=== PATIENT | male | born 1975 | race Caucasian/White ===

== ENCOUNTER → 2017-07-23 06:06 | Outpatient (CLI) | payer MEDICARE, SELFPAY ==
[2017-07-23 08:00] LABS: Hematocrit 50.4 % (40-54); Hemoglobin 18.7 g/dl (13.0-16.5)
[2017-07-23 08:22] LABS: ALB/GLOB Ratio 1.1 RATIO (0.9-2.4); AST(SGOT) 20 U/L (15-37); Alanine Aminotransfer ALT/SGPT 53 U/L (16-61); Albumin, Serum 3.9 g/dL (3.2-5.0); Alkaline Phosphatase 52 U/L (45-117); Anion Gap 8 (5-15); BUN 14 mg/dL (7-18); BUN/Creat Ratio 13.5 RATIO (10-20); Calcium,Total 8.8 mg/dL (8.5-10.1); Chloride 104 mmol/L (98-107); Creatinine, Serum 1.04 mg/dL (0.70-1.30); EST Glomerular Filtration Rate 84 mL/min (>60); Est Glom Filt Rate - Afr Amer 101 mL/min (>60); Free T3 2.5 pg/mL (2.18-3.98); Globulin 3.7 g/dL (2.2-4.2); Glucose 93 mg/dL (74-106); Protein, Total 7.6 g/dL (6.4-8.2); Sodium Level 141 mmol/L (136-145); Thyroid Stim Hormone (TSH) 4.02 uIU/mL (0.358-3.74)
[2017-07-31 11:05] LABS: DHEA Sulfate 677.7 ug/dL (102.6-416.3); Testosterone, % Free 5.13 % (1.50-4.20); Testosterone, Total 772 ng/dL (264-916)
== END ==
PROVIDERS: Visit Provider Internal Medicine Endocrinology, Diabetes & Metabolism
DX: E29.1 Testicular hypofunction (principal); E89.0 Postprocedural hypothyroidism
CPT/HCPCS: 36415; 80053; 82627; 84402; 84403; 84436; 84443; 84481; 85014; 85018; 82626

== ENCOUNTER 2017-09-24 14:44 | Emergency (ER) | payer MEDICARE, SELFPAY ==
[2017-09-24 14:46] VITALS: BP 148/76; PULSE 86; RESP 16; TEMP 36.7; O2SAT 97; BMI 29.5
[2017-09-24 16:45] VITALS: BP 137/85; PULSE 79; RESP 17; O2SAT 96
[2017-09-24 17:39] LABS: Absolute Lymphocyte Count 2.36 X10^3/ul (0.83-4.51); Absolute Neutrophil Count 2.4 X10^3/uL (2.0-7.7); Basophil# 0.01 X10^3/uL; Basophil% 0.2 % (0-1); Eosinophil# 0.05 X10^3/uL; Eosinophils% 0.9 % (0-5); Hematocrit 46.9 % (40-54); Hemoglobin 16.9 g/dl (13.0-16.5); Lymphocyte # 2.36 X10^3/ul (4.0); Lymphocyte % 44.1 % (19-41); Mean Corpuscular Hgb 33.6 pg (27.0-32.0); Mean Corpuscular Volume 93.2 fL (80-94); Mean Platelet Vol. 9.7 fl (6.2-12.0); Monocyte# 0.51 X10^3/uL; Monocyte% 9.5 % (0-10); Neutrophil # 2.41 X10^3/uL (2.7-7.7); Neutrophil % 45.1 % (47-70); Platelet Count 172 K/mm3 (150-450); RBC Distribution Width CV 12.2 % (11.6-14.6); RBC Distribution Width SD 41.1 fl (35.1-43.9); Red Blood Count 5.03 M/mm3 (4.6-6.2); White Blood Count 5.4 K/mm3 (4.4-11.0)
[2017-09-24 17:40] LABS: POSITIVE COUNT NO; POSITIVE DIFFERENTIAL NO; POSITIVE MORPHOLOGY NO
[2017-09-24 18:00] LABS: Anion Gap 7 (5-15); BUN 20 mg/dL (7-18); BUN/Creat Ratio 18.2 RATIO (10-20); Calcium,Total 8.7 mg/dL (8.5-10.1); Chloride 105 mmol/L (98-107); EST Glomerular Filtration Rate 78 mL/min (>60); Est Glom Filt Rate - Afr Amer 95 mL/min (>60); Glucose 127 mg/dL (74-106); Potassium 3.7 mmol/L (3.5-5.1); Sodium Level 140 mmol/L (136-145); Thyroid Stim Hormone (TSH) 9.43 uIU/mL (0.358-3.74)
[2017-09-24 18:28] VITALS: BP 137/70; PULSE 73; RESP 20; O2SAT 95
--- NOTE | 2017-09-24 18:50 | ED.VISSUMM ---
- ER Visit Summary Date of Service: 09/24/17 Chief Complaint: Anxiety History of Present Illness: The patient is a 42 M with a history of anxiety, depression, and hypothyroidism. Patient states that he had thyroid surgery last year. Since that time he has had anxiety and panic attacks. Patient reports he has chronically elevated hemoglobin levels and is requesting regular phlebotomy to correct this. Patient states he has reactions and sensitivities to many medications including his thyroid medications. His TSH has been elevated significant lately, up to 20, but his thyroid meds have to be slowly titrated back up because of his sensitivity to them. Patient is also complaining of insomnia but states he has had reactions to any medications to treat this as well. He does see a psychologist for his anxiety at the counseling center. Patient states that she wants to put him on anxiety medication but he feels that he has reactions to these medications and is afraid to trial others that he has not yet tried. Patient states he is interested in going to [facility] for treatment of his anxiety but he wants to drive there voluntarily. Patient states he has been in contact with them through their website. He does not wish to be sent from here as a transfer. He denies suicidal thoughts at this time. Physical Examination: Vital signs are unremarkable. Patient sitting upright in bed. He is anxious and intermittently tearful. Head neck examination is unremarkable. Heart is regular rate and rhythm. Lung sounds are clear. Abdomen is soft nontender. Skin examination reveals normal color throughout. No rashes are appreciated. Neuro exam reveals no focal deficits. Test Results: Patient did agree to allow me to recheck his hemoglobin and his TSH. His CBC returned with a hemoglobin of 16.9 which is actually improved when compared to his previous values. Chemistry studies are gross unremarkable. TSH is 9.43, which patient states again is improving. Emergency Department Course and Treatment: She declined to try anything here for pain. He does not want to be on benzos. He reported he has been on Vistaril in the past and had a bad reaction to that. I did discuss the patient with intake at [facility]. They do have beds available. They said the patient was more than welcome to drive there to be evaluated and treated. On repeat evaluation patient is requesting referral to a student career development specialist as well as a bridge repairer. He is given phone numbers for both Dr. Plummer as well as Dr. Lopez along with Dr. Albert for hematology. Treatment Plan: [] Disposition: Discharge Impression: Anxiety This note was generated with Swogo dictation software. It may contain incorrect words, spelling, and punctuation that were not noted in review of the chart prior to signing ED Disposition - Plan for ED Patient: Disposition: Home or Assisted Living Chief Complaint: General Illness Instructions: ED Panic Attack Referrals: Bartolo Lopez DO [STAFF PHYSICIAN] - Johnathon Albert MD [NON-STAFF] - Ion Plummer MD [STAFF PHYSICIAN] -
--- NOTE | 2017-09-24 18:50 | ED.DEP ---
ED Disposition - Plan for ED Patient: Disposition: Home or Assisted Living Chief Complaint: General Illness Instructions: ED Panic Attack Referrals: Ion Plummer MD [STAFF PHYSICIAN] - Bartolo Lopez DO [STAFF PHYSICIAN] - Johnathon Albert MD [NON-STAFF] -
[2017-09-24 19:12] VITALS: BP 131/74; PULSE 59; RESP 16; O2SAT 97
== END 2017-09-24 19:13 | disposition home or self-care (01) ==
PROVIDERS: Emergency Provider Emergency Medicine
DX: F41.9 Anxiety disorder, unspecified (principal); F32.9 Major depressive disorder, single episode, unspecified; E03.9 Hypothyroidism, unspecified; Z79.899 Other long term (current) drug therapy
CPT/HCPCS: 80048; 84443; 85025; 99283; A4216

== ENCOUNTER → 2017-10-15 20:00 | Outpatient (CLI) | payer MEDICARE, SELFPAY ==
[2017-10-15] MEDS: Zolpidem Tartrate 5 MG Tablet PO (21:45)
== END ==
PROVIDERS: Visit Provider Internal Medicine Critical Care Medicine
DX: G47.33 Obstructive sleep apnea (adult) (pediatric) (principal)
CPT/HCPCS: 95811

== ENCOUNTER 2018-02-03 09:00 | Outpatient (RCR) | payer MEDICARE, SELFPAY ==
--- NOTE | 2018-02-03 09:01 | BH.SGPN.GN ---
Behaviors/Verbalizations/Mental Status: [Client maintained good eye contact, casually dressed - torn shorts, motor activity restless -client shaking leg, distracted by phone, and walking in and out of room on various occasions, speech normal rate and tone, mood depressed,anxious, affect congruent, thoughts linear and logical - some appearance of circumstantiality, no evidence of delusions or hallucinations. Therapist reviewed clients symptom tracker to assess for intensity of mental health symptoms and identify risk for suicide. No signs of suicidal ideation, plan, or intent to date.] Client Response/Progress/Benefit: [Client new to IOP program and adjusting to dynamics of group environment. He was receptive of session and openly engaged in group. Client discussed having previously attended group therapy in the form of IOP tx when he was younger, which he believes has given some insight coming into the program now. CLient went on to describe the recent events and life stressors leading up to client seeking mental health treatment including ongoing medical issues related to his thyroid, debilitating anxiety and depression, currently going through a divorce, and struggling to function at baseline. Client benefitted from the support provided by the structured group environment. He expressed motivation to improve his current ability to manage mental health symptoms and believes that the routine being in a structured IOP setting will be helpful in doing so. Recommended continued IOP tx to prevent decompensation, improve levels of insight into mental health symptoms, and improve client ability to function at baseline. ] Narrative Note: []
--- NOTE | 2018-02-03 17:52 | BH.MDN ---
Multi-Disciplinary Note - Note 60-min Individual Time Started:: 12:30 Date: 02/03/18 Purpose of session/treatment goals addressed:: Purpose of session was to check-in with pt about first day in IOP, assess current symptoms and stressors. Eye Contact:: Fair, Other - at times closed eyes while talking Motor Activity:: Restless Appearance:: Neat Speech:: Rambling Mood:: Anxious, Depressed Affect:: Flat Thoughts:: Circular, No evidence of hallucinations/delusions noted Staff Interventions:: Therapist used open ended questions to elicit pt's thoughts about first day in IOP. Therapist processed pt's current symptoms and stressors, validated current emotions. Therapist assesed lethality and discussed safety plan if pt feels cannot maintain safety. Therapist provided support by using active listening and validating emotions. Client Response:: Pt shared he enjoyed his first day in the program because he needs to keep getting out of the house and the content discussed in group sessions was helpful. Pt Time Stopped:: 13:50
--- NOTE | 2018-02-03 22:29 | BH.MDN ---
Multi-Disciplinary Note - Note 60-min Individual Date: 02/03/18 Purpose of session/treatment goals addressed:: Purpose of session was to check-in with pt about first day in IOP. Also addressed current stressors, symptoms and assessed for lethality. Eye Contact:: Fair Motor Activity:: Restless Appearance:: Casual Speech:: Rambling Mood:: Anxious, Depressed Affect:: Flat Thoughts:: Circular, No evidence of hallucinations/delusions noted
--- NOTE | 2018-02-04 09:03 | BH.SGPN.GN ---
Behaviors/Verbalizations/Mental Status: [Client maintained intense, fixed eye contact throughout, casually dressed, motor activity was restless - client shaking leg, shifting seat, looking at phone, speech circumstantial, thoughts logical though circular content regarding medication concerns, no evidence of delusions or hallucinations. Therapist reviewed clients symptom tracker to assess for intensity of mental health symptoms and identify risk for suicide. No signs of suicidal ideation, plan, or intent to date.] Client Response/Progress/Benefit: [Client receptive of engaging in session and openly provided input throughout. He discussed ongoing frustrations with difficulties in managing symptoms of anxiety and depression. Client indicated feeling as though he is constantly trying to come up with a remedy and feels as though he has not been able to see much difference in his overall mental health symptoms. Client attributes much of this to difficulties in adjusting to new psychiatric medications. He went on to discuss trying to change his mindset in order to look at it as though his progress is a ball rolling slowly continuing to make progress. He appeared to benefit from the structured and supportive group environment as well as having the opportunity to identify tentative ways to approach his ruminations and begin to More Positive Thinking Strategies. Client Recommended Continued IOP Treatment in Order to Prevent Decompensation As Well As Further Increase Insight and Understanding regarding His Personal Experiences with Mental Health Symptoms As Well As Improve Consistent Application of Healthy Coping Mechanisms.] Narrative Note: []
--- NOTE | 2018-02-04 10:17 | BH.SGPN.GN ---
Behaviors/Verbalizations/Mental Status: []Client alert and oriented, neatly dressed and groomed. Eye contact intense. Motor activity appropriate. Speech monotone, otherwise within normal limits. Affect flat, mood dysthymic, anxious, and irritable. Thoughts linear, logical, no signs of hallucinations or delusions. Client Response/Progress/Benefit: []Client responded well to session, providing insight to discussion. Client appeared to connect with the quote sharing, when you are really low it seems like it is the load that breaks you but you can learn to carry it better. Client stated coping skills help one process, manage, and release emotions. Client shared one learns coping skills throughout life and that unhealthy coping skills are easier and seem better, but thats a lie. Client participated in the activity using deep breathing to manage his emotions. Client reported quality coping skills are more important than quantity and that applying coping skills is more important than just having knowledge. Client also reported it is important to have a mix of internal and external coping skills. Client stated he has internal coping skills, but client chooses to rely on external, self-identifying as co-dependent. Client reported he seeks validation from others which causes client to doubt his own abilities to cope. Client appeared to benefit from increasing awareness of his coping skills and of the benefits of having a balance of internal and external coping skills. Clients progress limited as it is clients second day, but he appears to have good insight to his mental health symptoms and struggles. Client to continue IOP to promote safety, increase mood stability, and prevent decompensation.
--- NOTE | 2018-02-04 22:30 | BH.MDN ---
Multi-Disciplinary Note - Note 60-min Individual Time Started:: 11:20 Date: 02/04/18 Purpose of session/treatment goals addressed:: Purpose of session was to assess for lethality, safety plan and address current symptoms and stressors. Other topics: cognitive distortions. Eye Contact:: Fair Motor Activity:: Restless Appearance:: Casual Speech:: Rambling Mood:: Anxious, Depressed Affect:: Flat Thoughts:: Circular, No evidence of hallucinations/delusions noted Time Stopped:: 12:15
--- NOTE | 2018-02-05 09:07 | BH.SGPN.GN ---
Behaviors/Verbalizations/Mental Status: [Client eye contact fixed and verging on intense throughout, casually dressed, motor activity was restless - client shifting and placing head in hands on multiple occasions, speech continues to be circumstantial, thoughts logical though circular in content - ongoing preoccupation regarding medication concerns and expressed difficulties in focusing, no evidence of delusions or hallucinations. Therapist reviewed clients symptom tracker to assess for intensity of mental health symptoms and identify risk for suicide. No signs of suicidal ideation, plan, or intent to date.] Client Response/Progress/Benefit: [Receptive of session engaged in conversation throughout. He willingly processed current frustrations with the group and discussed feeling as though he continues to from one extreme to another regarding his ability to focus and function. Client indicated that following group on the previous day he felt good and hopeful for his future which was the first time he had felt this way in quite a while. Client indicated that this had encouraged him to go for a hike and play guitar for a little while. He went on to indicate that later in the evening he began to feel increasingly anxious and experienced difficulty focusing or sitting still. Client attributes this to ongoing difficulties adjusting to medications as well as indicated I messed up my food restrictions and had pizza which client expressed believe made him hyper. Client continues to express wanting to work towards becoming more positive and balanced but continues to have difficulties with focusing solely on a lack of external locus of control. Client benefited from being challenged regarding the impact negative thinking may have on his anxiety symptoms and is making progress in discussing variables impacting mental health outside of medications. Client recommended continued IOP treatment in order to maintain stability as well as further improve levels of insight and knowledge regarding mental health symptoms and ability to manage such.] Narrative Note: []
--- NOTE | 2018-02-06 09:03 | BH.SGPN.GN ---
Behaviors/Verbalizations/Mental Status: []Client alert and oriented, neatly dressed and groomed. Eye contact good. Motor activity tense. Speech within normal limits. Affect constricted- smiling during icebreaker then flat the rest of the session, mood irritable, anxious. Thoughts preoccupied, reporting intrusive fleeting thoughts, no signs of hallucinations or delusions. Reviewed clients symptom tracker, no risk for suicidal ideation, plan, or intent as of 02/06/18 comments were future oriented. Client Response/Progress/Benefit: []Client responded well to session, improved affect. Client reports feeling agitated today after not being able to sleep well last night which led to increased anxiety this morning. Client shared yesterday was overall positive, client shared he felt more motivated to get things done, went for a walk, and took care of his bills. Client reported belief his medication was the primary reason for his improved mood and also the reason for why he could not sleep. Client stated he took his sleeping medication and nothing was slowing me down. Therapist attempted to help client gain awareness of internal coping skills he could use to regulate anxiety, but client appeared reluctant as client shared his symptoms can only be alleviated through medication. With group feedback, client identified that positive self-talk could help client regulate anxiety while he figures out his medications. Client appeared to benefit from gentle challenging of cognitive distortions. Clients progress is limited as client reports minimal use of internal coping skills due to clients self-reported perception that his symptoms can only be alleviated through medication. Client to continue IOP to prevent decompensation and increase internal emotional regulation skills.
--- NOTE | 2018-02-06 11:00 | BH.NOTE ---
BH: Inpatient Note - Notes Behavioral Health Inpatient Note: Client expresses some passive thoughts of suicide, as he is at the end of his rope with medication trails and always feeling anxious. He denies a plan or intent. He does contract for safety and is agreeable to seek inpatient placement at [facility] this weekend if he feels unsafe. Client's alternate plan is to call 911 or the local crisis line for immediate assistance. Mary Kay Naidu BSN, RN
--- NOTE | 2018-02-06 12:44 | PCM.HP.BLA ---
History and Physical Identifying information Patient is a 42-year-old male who presents to the [facility] with chief complaint of depression and anxiety. I am going through a lot. History is been obtained per interview with patient, discussion with staff, review of chart. Case discussed with treatment team. History of present illness Patient is a 42-year-old male who presents to the [facility] by self-referral for evaluation and treatment of depression and anxiety over the past 8 months. He feels his symptoms have been exacerbated by thyroid dysregulation and marital dynamics. He notes that his is cheating and is planning to leave him. He endorses a depressed mood with anhedonia, decreased energy and difficulty concentrating. He has had some passive thoughts of suicide for the past few months stating I want the pain to go away. He denies suicide plan or intent and states I want to live. He feels able to maintain safety. He denies homicidal thoughts. He denies hallucinations. He sleeps 4-5 hours per night and is compliant with BiPAP. He has history of obstructive sleep apnea. His appetite is overall decreased. He has ruminative anxiety which he describes as constant. He feels his anxiety interferes with daily functioning. He finds it difficult to grocery shop and concentrate. He reports panic attacks which she feels short of breath and has heart palpitations occurring with increasing frequency over the past few months. He denies obsessions or compulsions. Denies history of eating disorder. Reports history of over activated mood in his mid 20s and notes that providers at the time questioned hypomania and possible diagnosis of bipolar 2. He states that the episodes of over activation resolved with proper coping mechanisms and lifestyle. He reports multiple medication trials in the past which have resulted in medication sensitivity. Brief trial of Depakote resulted in weight gain and trial of lithium left him feeling salty. Lamictal caused rash. He reports Lexapro has been effective for him previously. He started a low-dose of Lexapro 3 days ago. Past psychiatric history Depression and anxiety. Unclear if mood symptoms have been consistent with true manic episode in early 20s. Denies psychiatric hospitalizations or suicide attempts. Outpatient psychiatric provider Rita Romo for the past 2 years. Previous trial of Lexapro effective. Lamictal caused rash. Depakote caused weight gain. [place] resulted in feeling salty. Substance use history Denies smoking cigarettes. Denies alcohol consumption within the past year. Reports history of excessive consumption with DUI 8 years ago. Smoked cannabis as a teen. Used cocaine as a teen. No illicit drug use recently. Denies ingestion of caffeine. Past medical history Obstructive sleep apnea Polycythemia Prediabetes Ocular migraines Allergies-Lamictal and amoxicillin Current medications Lexapro 2.5 mg daily which he started 3 days ago. Neurontin 200 mg nightly which he started on Friday but took 300 mg last night. Testosterone twice per week Family medical psychiatric history Maternal great-grandmother had a history of paranoia Mother-depression and OCD Aunt-psychotic. Developmental social history Patient was born and raised in [facility]. Only child. Father in an airplane accident at age 9. He states he was alone a lot. It sucked. He attended school until the seventh grade but then was homeschooled for 2 years due to anxiety. He will return to school in the 10th and 11th grade. He dropped out in the 11th grade and is using drugs. He obtained his GED. 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 He has been on Social Security disability for the past 8 years initially for ocular migraines. He has been twice his first marriage resulted in divorce. He has been to his current for 6 years. His current is cheating and requesting separation. He has 2 children ages 18 and 15. Legal history DUI 8 years ago Mental status exam Vital signs reviewed and discussed with nursing. Alert and oriented. No acute distress. Ambulatory with normal gait and station. Casually dressed and groomed. Appropriate hygiene. Cooperative with interview. Good eye contact. No psychomotor agitation or retardation. Mood depressed. Affect congruent. Speech is clear and of regular rate and volume. Language fluent. Thought process organized. Associations logical. Thought content significant for ruminative anxiety and themes of depression. Passive suicidal ideation. No suicide plan or intent. Feels able to maintain safety. No homicidal ideation related to her detected. No evidence of psychosis related to her detected. Immediate recent and remote memory grossly intact. Attention and concentration are fair. Estimated intelligence fund of knowledge average. Judgment and insight are limited to fair. Labs and testing Hemoglobin and between 17 and 19 during multiple lab draws between July and September 2017. July 23, 2017 testosterone 772. July 23, 2017 T4 is 10 T3 is 2.5. Patient reports that he has had recent thyroid studies that are close to normal range. Labs will be requested from primary care physician. Diagnosis Major depressive disorder recurrent moderate F 33.1 Anxiety unspecified Personality disorder with dependent traits Obstructive sleep apnea Polycythemia History of ocular migraines Plan Admit to IOP as the structured setting is necessary to prevent decompensation. Risk-benefit alternative of medications discussed with patient. Patient acknowledges understanding. Extensive discussion regarding medication management. Patient displayed help rejecting and dependent behaviors regarding medications. Multiple medications have been discussed. Patient declines multiple medication options. Continue Lexapro 2.5 mg daily. Patient reports current side effect of fatigue and feels he will be unable to tolerate higher dose at this time. Increase gabapentin 300 mg p.o. nightly. Follow-up with Rita Romo for when IOP complete. Patient acknowledges understanding and is in agreement with plan. Feels able to maintain safety. Agrees to seek help or emergency care if feeling unsafe to self or others.
--- NOTE | 2018-02-06 12:52 | BH.NA ---
Physical Data - Height/Weight Height: 1.83 m Weight:: 97.522 kg Weight in Pounds: 215.0 lbs Current Medication Compliance - Medication Compliance Do you take your medication as prescribed?: Yes Do you need assistance with taking medication?: No Have you had side effects from medication?: Yes Nutritional History - Appetite Nutritional Instructions:: If client shows signs of a swallowing problem, weight change of 10 pounds or more in the last month, or is on a diabetic diet, the physician will review and request a dietitian consult, as appropriate. All unintentional weight loss will be referred to the physician for decision on need for dietitian consult. Describe your appetite:: Poor Have you noticed a change in your eating habits lately?: Yes - generally poor, but increased since starting Lexapro 2 days ago Additional nutritional information:: 35-40# wt loss in the past 18 months Functional Assessment - Activities Motor Activity:: Functional Sensory/Communication Assess - Hearing Problems Do you have any hearing problems?: Adequate - Communication Problems Do you have difficulty understanding what people are saying?: No Do you have trouble putting your thoughts into words or expressing what you want to say?: Yes Do people ever have trouble understanding what you say?: No What is your primary language?: Liberian Learning Assessment - Education What is your level of education?: GED - Learning Barriers Learning Barriers:: Ready to learn Medical Problems/History - Respiratory Conditions Respiratory: Other (See comments) - NEGRO on PAP therapy - Neurological Conditions Neurological: Other (See comments) - migraines - Hematologic Conditions Hematologic: Other (See comments) - chronic thrombocytopenia - Metabolic Conditions Metabolic: Hypothyroidism - s/p complete thyroidectomy, Other (See comments) - low testosterone - Pain Assessment Do you have acute or chronic pain?: Yes - Family History Family History: Family History (Last Reviewed 11/28/17 @ 14:11 by JANA Barrios) Grandmother NEGRO (obstructive sleep apnea) Grandfather NEGRO (obstructive sleep apnea) Mother NEGRO (obstructive sleep apnea) Aunt NEGRO (obstructive sleep apnea) Uncle NEGRO (obstructive sleep apnea) Surgical History - Surgical History Have you had any surgeries? If so, list type and date:: Yes - total thyroidectomy Substance Abuse - Substance Abuse Please describe substance abuse in the last 30 days:: Client denies tobacco, alcohol, illicit substance, and caffeine. Mental Status Summary - Mental Status Significant Findings/Observations on Appearance and Mood:: Client is A&Ox4, neatly groomed with appropriate hygiene, casually dressed. He is cooperative with interview and hyperactive in seat. Varies between intense/staring eye contact to completely avoiding eye contact. Speech is clear and of regular rate and volume. Moderate depression and anxiety. Restricted affect. Client perseverative associations surrounding medications and his hypothyroid, and is difficult to redirect. He does exhibt some concrete thinking and finds flaw with all suggested alternatives. He admits to intermittent SI without plan or intent. Denies HI and hallucinations, however, does seem to obsess over medications, disease pathophysiology, and drug mechanisms of action. Fair concentration and attention. Suicide Assessment - Suicidal Ideation Are you currently or have you been suicidal in the past?: Yes Suicidal Intentional Rating Scale (SIRS): Current suicidal thoughts/No plan/Contracts for safety Physician Notification: If Active suicidal thoughts/Will not contract for safety is checked, contact physician and document in the Physician Notification section below. Past Psychiatric History - Treatment Hx Past Psychiatric Medications:: wellbutrin, kepakote, buspar, trazadone, hydroxyzine, lamictal, lexapro Fall Risk Assessment - Age Age: Less than 60 - Mental Status Mental Status: Willing & able to ask for assistance when needed - Physical Status Physical Status: No problems - Impairments Impairments: None - Elimination Elimination: Continent AND independent - Gait or Balance Gait or Balance: Walks independently - Hx of Falls History of falls in the past 6 months: No known history - Medications/Substances Psychotropics:: Antidepressants Medications/substances used within the past 24 hours or ordered to administer: 1-2 of the medications/substances listed above - Total Score Total Points:: 1 Physician Notification - Physician Notification Physician Notified: Eri Monroy Method of Notification: Face to Face Comments: treatment marketing planning manager Summary of Impressions - Impressions Recommendations: Include psychiatric and medical issues, treatment planning recommendations, and discharge planning needs. Impressions: Psychiatric Issues: MDD, anxiety, evidence of cluster B and C traits - Level of Care How do the client's current symptoms and functional deficits support need for this level of care?: Client endorses decreased energy and concentration for several months. He has also been working with his physicians to correct his thyroid levels, which may be contributing to his depression and anxiety. Other than his health, he identifies his divorce from his as a stressor. His appetite is down and he has lost 35-40# in the past year. He does have several cluster B and C traits and few coping skills that he is utilizing. IOP may promote gains and prevent further decompensation.
--- NOTE | 2018-02-06 13:09 | HP.PCM_ITS ---
History and Physical Identifying information Patient is a 42-year-old male who presents to the [facility] medicine [facility] with chief complaint of depression and anxiety. I am going through a lot . History is been obtained per interview with patient, discussion with staff, review of chart. Case discussed with treatment team. History of present illness Patient is a 42-year-old male who presents to the [facility] medicine [facility] by self-referral for evaluation and treatment of depression and anxiety over the past 8 months. He feels his symptoms have been exacerbated by thyroid dysregulation and marital dynamics. He notes that his is cheating and is planning to leave him. He endorses a depressed mood with anhedonia, decreased energy and difficulty concentrating. He has had some passive thoughts of suicide for the past few months stating I want the pain to go away. He denies suicide plan or intent and states I want to live. He feels able to maintain safety. He denies homicidal thoughts. He denies hallucinations. He sleeps 4-5 hours per night and is compliant with BiPAP. He has history of obstructive sleep apnea. His appetite is overall decreased. He has ruminative anxiety which he describes as constant. He feels his anxiety interferes with daily functioning. He finds it difficult to grocery shop and concentrate. He reports panic attacks which she feels short of breath and has heart palpitations occurring with increasing frequency over the past few months. He denies obsessions or compulsions. Denies history of eating disorder. Reports history of over activated mood in his mid 20s and notes that providers at the time questioned hypomania and possible diagnosis of bipolar 2. He states that the episodes of over activation resolved with proper coping mechanisms and lifestyle. He reports multiple medication trials in the past which have resulted in medication sensitivity. Brief trial of Depakote resulted in weight gain and trial of lithium left him feeling salty. Lamictal caused rash. He reports Lexapro has been effective for him previously. He started a low-dose of Lexapro 3 days ago. Past psychiatric history Depression and anxiety. Unclear if mood symptoms have been consistent with true manic episode in early 20s. Denies psychiatric hospitalizations or suicide attempts. Outpatient psychiatric provider Rita Romo for the past 2 years. Previous trial of Lexapro effective. Lamictal caused rash. Depakote caused weight gain. [place] resulted in feeling salty. Substance use history Denies smoking cigarettes. Denies alcohol consumption within the past year. Reports history of excessive consumption with DUI 8 years ago. Smoked cannabis as a teen. Used cocaine as a teen. No illicit drug use recently. Denies ingestion of caffeine. Past medical history Obstructive sleep apnea Polycythemia Prediabetes Ocular migraines Allergies-Lamictal and amoxicillin Current medications Lexapro 2.5 mg daily which he started 3 days ago. Neurontin 200 mg nightly which he started on Friday but took 300 mg last night. Testosterone twice per week Family medical psychiatric history Maternal great-grandmother had a history of paranoia Mother-depression and OCD Aunt-psychotic. Developmental social history Patient was born and raised in [facility]. Only child. Father in an airplane accident at age 9. He states he was alone a lot. It sucked. He attended school until the seventh grade but then was homeschooled for 2 years due to anxiety. He will return to school in the 10th and 11th grade. He dropped out in the 11th grade and is using drugs. He obtained his GED. 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 He has been on Social Security disability for the past 8 years initially for ocular migraines. He has been twice his first marriage resulted in divorce. He has been to his current for 6 years. His current is cheating and requesting separation. He has 2 children ages 18 and 15. Legal history DUI 8 years ago Mental status exam Vital signs reviewed and discussed with nursing. Alert and oriented. No acute distress. Ambulatory with normal gait and station. Casually dressed and groomed. Appropriate hygiene. Cooperative with interview. Good eye contact. No psychomotor agitation or retardation. Mood depressed. Affect congruent. Speech is clear and of regular rate and volume. Language fluent. Thought process organized. Associations logical. Thought content significant for ruminative anxiety and themes of depression. Passive suicidal ideation. No suicide plan or intent. Feels able to maintain safety. No homicidal ideation related to her detected. No evidence of psychosis related to her detected. Immediate recent and remote memory grossly intact. Attention and concentration are fair. Estimated intelligence fund of knowledge average. Judgment and insight are limited to fair. Labs and testing Hemoglobin and between 17 and 18 during multiple lab draws between July and September 2017. July 23, 2017 testosterone 772. July 23, 2017 T4 is 10 T3 is 2.5. Patient reports that he has had recent thyroid studies that are close to normal range. Labs will be requested from primary care physician. Diagnosis Major depressive disorder recurrent moderate F 33.1 Anxiety unspecified Personality disorder with dependent traits Obstructive sleep apnea Polycythemia History of ocular migraines Plan Admit to IOP as the structured setting is necessary to prevent decompensation. Risk-benefit alternative of medications discussed with patient. Patient acknowledges understanding. Extensive discussion regarding medication management. Patient displayed help rejecting and dependent behaviors regarding medications. Multiple medications have been discussed. Patient declines multiple medication options. Continue Lexapro 2.5 mg daily. Patient reports current side effect of fatigue and feels he will be unable to tolerate higher dose at this time. Increase gabapentin 300 mg p.o. nightly. Follow-up with Rita Romo for when IOP complete. Patient acknowledges understanding and is in agreement with plan. Feels able to maintain safety. Agrees to seek help or emergency care if feeling unsafe to self or others.
--- NOTE | 2018-02-06 13:09 | BH.DR.ITP ---
Initial Treatment Plan - Patient Information Visit Information: ADMISSION DATE: EXPECTED LOS: 4-6 weeks Diagnoses:: Major depressive disorder recurrent moderate F 33.1. Anxiety - Problems/Symptoms Problem #1:: Depression Symptom:: Sad mood, anhedonia, passive suicidal thoughts, biologic disruption of sleep and appetite Problem #2:: Anxiety Symptom:: Rumination, panic
--- NOTE | 2018-02-09 09:05 | BH.SGPN.GN ---
Behaviors/Verbalizations/Mental Status: [Client maintained good, at times intense, eye contact, appearance neat and casual, motor activity restless, exaggerated, speech normal rate and tone, mood dysthymic, congruent affect, thoughts linear and intact, no evidence of delusions or hallucinations.] Client Response/Progress/Benefit: [Attentive and providing input to discussion as well as suggestions and feedback to peers. Emotion for today is relaxed but exasperated as client reports he has had a calm morning so far though dealt with a difficult weekend. Client went on to describe issues within his relationship, describing it as ?weird and strained? went on to indicate knowing this is toxic for him however struggles to sever ties after so long. Client additionally discussed this led to anxiety and fleeting SI. He shared stopping his meds out of fear that they have increased his overall depression levels, and appears to focus primarily on the external factors contributing to poor mental health state. Client benefitted from support of the group and is showing progress in improved mental health sx as emotion today was not ?depressed?. Continue treatment to improve depression and anxiety management and prevent decompensation.] Narrative Note: []
--- NOTE | 2018-02-09 10:25 | BH.SGPN.GN ---
Behaviors/Verbalizations/Mental Status: []Pt eye contact fair, casually dressed, motor activity restless, speech normal rate and tone, mood depressed and anxious, flattened affect, thoughts linear and intact, no evidence of delusions or hallucinations. Client Response/Progress/Benefit: []Pt contributed his thoughts and ideas throughout session, commented on others comments. pt reported he is a firm believer in having goals because without goals it would be hard to make improvements in life. Pt shared it's challenging for him to recognize small successes because he feels like small goals really aren't a success because he should be able to accomplish it. After being challenged by therapist pt noted he could see how it would be beneficial to celebrate small successes to increase confidence in moving forward. Pt seemed to benefit from learning about SMART goals and practicing setting small goals in the moment. Narrative Note: []
--- NOTE | 2018-02-09 11:25 | BH.SGPN.GN ---
Behaviors/Verbalizations/Mental Status: []Pt eye contact fair, casually dressed, motor activity appropriate, speech normal rate and tone, mood depressed and anxious, flattened affect, thoughts linear and intact, no evidence of delusions or hallucinations. Client Response/Progress/Benefit: []Pt listened attentively to others and contributed thoughts and ideas to discussion. Pt struggled with creating a goal for the week because he reported wasn't sure what to do. Pt stated he knows he needs to set a clean cut goal of how is going to alleviate his current situation. Pt reported he is willing to focus on identifying things he can do to get of the house. Pt shared he will reflect on what steps he needs to take in order to start a new life. Pt seemed to benefit from being encouraged to set a SMART goal which would help him move closer to what he wants in life. Pt progress could be hindered by pt's focus on negatives and difficulty believing using skills and other strategies can help him feel better. Pt to continue IOP level of care to maintain safety, increase daily functioning, and prevent decompensation. Narrative Note: []
--- NOTE | 2018-02-09 15:37 | BH.NOTE ---
BH: Inpatient Note - Notes Behavioral Health Inpatient Note: Per telephone order from Dr. Monroy, the following was called into [facility] pharmacy in [place]: Seroquel 6.25mg PO QHS (25mg pills #10) no refills KALEB SalazarN, RN
--- NOTE | 2018-02-09 22:32 | BH.MDN ---
Multi-Disciplinary Note - Note 60-min Individual Time Started:: 12:20 Date: 02/09/18 Purpose of session/treatment goals addressed:: Purpose of session was to assess pt's current symptoms and stressors. Other topics: assessed for lethality, contract for safety, and increasing use of healthy coping skills. Eye Contact:: Fair Motor Activity:: Appropriate Appearance:: Casual Speech:: Appropriate Mood:: Anxious, Depressed Affect:: Flat Thoughts:: Racing, Circular, No evidence of hallucinations/delusions noted Time Stopped:: 13:20
--- NOTE | 2018-02-10 09:16 | BH.PSA ---
Source of Information - Presenting Problems/Circumstances Problems, Referral Source, Mental Status, Client: Patient is a 42-year-old male who presents to the behavioral health [facility] with chief complaint of depression and anxiety. Psychiatric Presentation - Psych Issues & Need for Admission Psychiatric Issues:: Pt reports hx of depression, anxiety, and previous diagnosis of bipolar 2. Pt not confident that bipolar 2 diagnosis was correct. Pt current endorses depressed mood, low energy, no motivation, anhedonia, and passive thoughts of . Past Psychiatric History - MH Treatment Hx Treatment History: Pt reports he has been going to psychiatry off and on since age 23. Reports for the past 20 years he has had on and off counseling, but nothing consistent. First hospitalization:: 1997 for depression and medication stabilization Most recent hospitalization:: 2008 for depression and medication stabilization. Medication Trials:: Yes ECT Therapy:: No Age of first mental health symptoms: Pt reports looking back he recognizes he was experiencing depression when he was in middle school. Describe (age, circumstance, etc) any past hospitalizations: Pt reports first his first hospitalization he was experiencing a lot of stressors with a new baby, stress at work, and relationship problems. Pt states he went to inpatient to get on medications that would help. Pt reported his most recent hospitalization was due to experiencing severe depression and needing his medication stabilized. Current providers for mental health treatment (counselor, psychiatrist, case assembler, etc.): Pt currently sees parminder nova at [facility] for counseling and Debbie Neely at [facility] for psychiatry. Development & Family of Origin - Childhood Significant Childhood Events: Pt reports his father when he was age 10. Pt shared was alone alot because his mom was present. Pt was an only child and felt lonely a lot. Pt was bullied a lot in school so was homeschooled for a year. Pt reported at age 17 he went to live with his uncle for a year to work while being homeschooled, however pt shared he didn't do well with completing his school work due to being busy at work. Pt reported he then moved in with his aunt in [place], [place] to go to high school and completed a year of school. Shared he never completed high school because he ran away with his girlfriend at the time when he was in high school. - Family Who currently lives in your home?: pt lives with his . Pt reports current living situation is not healthy because his is cheating on him and has asked for a separation. Pt stated he is not in a good financial situation to be able to move out at this time. Describe family composition:: Patient was born and raised in [facility]. Only child. Father in an airplane accident at age 9. He has been twice his first marriage resulted in divorce. He has been to his current for 6 years. His current is cheating and requesting separation. He has 2 children ages 18 and 15, pt reports he does not see his children. - Family History Family History: Family History (Last Reviewed 11/28/17 @ 14:11 by JESSICA BarriosC) Grandmother NEGRO (obstructive sleep apnea) Grandfather NEGRO (obstructive sleep apnea) Mother NEGRO (obstructive sleep apnea) Aunt NEGRO (obstructive sleep apnea) Uncle NEGRO (obstructive sleep apnea) Family Hx of Psychiatric or AOD Problems: Maternal great-grandmother had a history of paranoia. Mother-depression and OCD. Aunt-psychotic. Ethnicity - Culture Do you identify yourself with any particular cultural, ethnic background, or community?: No Mental Status - Memory Recent Memory: Fair Remote Memory: Fair - Concentration Concentration: Fair - Eye Contact Eye Contact: Poor - Speech Speech: Repetitious - Thought Process Thought Process: Logical, Ruminations Insight: Fair Judgment: Poor Behavior: Agitated, Anxious - Orientation Orientation: Time, Person, Place, Situation - Appearance Appearance: Appropriate - Mood Mood: Anxious, Depressed - Affect Affect: Flattened Suicide Assessment - Suicidal Ideation Have you ever felt like hurting yourself?: Yes Please explain:: Pt reports he will have fleeting thoughts of suicide stating I just want the pain to go away. Pt states he has gone to a gun shop on 2 occasions as a test to see if he could really go through with killing himself. Pt shared when he got to the gun shop he knew he couldn't go through with killing himself and solified for him that he still has a desire to live. Pt reports on and off fleeting thoughts of suicide, denies plan or intention to date. Reports he will go to [facility] inpatient if he feels cannot maintain safety. Suicidal Intentional Rating Scale (SIRS): Current suicidal thoughts/No plan/Contracts for safety Physician Notification: If Active suicidal thoughts/Will not contract for safety is checked, contact physician and document in the Physician Notification section below. Violent Behavior/Abuse History - Homicidal Ideation Do you have any homicidal thoughts? If so, explain:: No Is there a known potential victim? If yes, who:: No - Safety Do you ever feel threatened in your home? If yes, describe:: No Substance Use - Substance Substance Use Type: Alcohol, Cocaine - Specific Drugs What specific drugs have you used?: Denies alcohol consumption within the past year. Reports history of excessive consumption with DUI 8 years ago. Smoked cannabis as a teen. Used cocaine as a teen. No illicit drug use recently. Denies ingestion of caffeine. 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 He has been on Social Security disability for the past 8 years initially for ocular migraines. List any previous volunteering you may have done:: Pt reports used to volunteer a lot when he would attend [employer]. Service - Service Have you ever been in the ?: No Legal History - Records Have you had any past legal charges?: Yes - DUI 8 years ago. Do you have any current legal charges?: No Have you ever been incarcerated? If yes, describe:: No - Court Orders Have you had any past court orders for psychiatric treatment?: No Do you have a present court order for psychiatric treatment?: No Problem Checklist - Current Problem Areas Problem List: Nutritional/Eating pattern changes - decreased appetite, Depressed mood/sad - most days results in isolative behaviors and loss of pleasure hinders pt from doing any extracurricular activities., Anxiety - reports constant anxiety. 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 What are the client's goals?: Pt reports he wants to have a more healthy daily routine, learn new healthy coping skills and apply those coping skills on more consistent basis. Diagnoses - Diagnoses Diagnosis #1:: Major depressive disorder recurrent moderate F 33.1 Diagnosis #2:: Anxiety unspecified Diagnosis #3:: Personality disorder with dependent traits Interpretive Summary - Interpretive Summary Interpretive Summary: Pt is a 42 year old male, self-referred to intensive outpatient program due to worsening depression and anxiety which are impacting daily functioning. Hx of anxiety and depression. Hx of 2 psychiatric hospitalizations one 20 years ago and the second 7 years ago, both for medication stabilization. Pt reports he had his thyroid removed 2 years ago, which significantly impacted his mental health and messed me up. Pt stated his thryoid numbers have recently stabilized but noticed for the past 7 months his mental health has been decompensating. Pt's pychosocial stressor of discovering his is having an affair and plans to leave pt was a major stressor for increased anxiety and depression. Pt currently still lives with , which has impact on his mood when she doesn't come home. Pt currently endorses decreased energy, decreased motivation, anhedonia, decreased sleep, hopelessness, and worthlessnes. Pt reports daily panic attacks, decreased concentration, racing thoughts, and ruminations. Pt reports ever since his thyroid was completely removed he researches all medical recommendations because he believes his thyroid didn't have to be removed, which he blames himself for not being better informed. Pt wants to find the right psychiatric medication and has extensively researched how each medication would interact with him. Pt spends an exorbent amount of time researching and re-researching medications in search for the perfect pill. Pt denies current alcohol or elicit drug use. No evidence of delusions or hallucinations. Treatment Plan Recommendations - Recommendations Guidelines: Special needs identified to be included in the development of an individualized treatment plan regarding past psychiatric history and treatment, developmental events, family relationships/events/culture, past and/or current educational, occupational, social, and residential experience, and legal status. Recommendations:: Based on worsening symptoms, fleeting SI, and decreased functioning IOP level of care recommended.
--- NOTE | 2018-02-10 10:15 | BH.SGPN.GN ---
Behaviors/Verbalizations/Mental Status: [Client maintained consistent eye contact - at times appearing intense, casually dressed and appropriately groomed, motor activity restless - client moving around in seat or standing while talking, speech normal rate and tone - , mood anxious, dysthymic, affect congruent, thoughts logical - at times tangential or loose in associations, some evidence of circumstantiality, no evidence of delusions or hallucinations.] Client Response/Progress/Benefit: [Client receptive of session and engaged throughout, AEB providing input to discussion and insight regarding past experiences with topic of conflict resolution. Client indicated connecting with the quote for today's topic and expressed recently reflecting upon how much miscommunication and assumptions can lead to unnecessary conflict. Provided an example related to his current relationship issues. Client benefited from reviewing various conflict resolution styles and the pros and cons of each. Did well to provide insight on each though at times engaging in off-topic or side conversations distracting himself and others. Client identified often falling into the assert and ?collaborating? approaches to conflict. Made progress in his ability to identify ways in which these approaches impact current relationships as well as client mental health. Client recommended continued IOP treatment in order to further improve ability to internalize tx materials, prevent decompensation, and increase utilization of internal coping and thought challenge skills.] Narrative Note: []
--- NOTE | 2018-02-10 11:17 | BH.SGPN.GN ---
Behaviors/Verbalizations/Mental Status: [[Client maintained good, at times intense, eye contact, dressed casually and neatly, motor activity restless fidgeting and bouncing legs, speech normal rate and tone, mood dysthymic, agitated, affect congruent, thoughts linear and logical, no evidence of delusions or hallucinations.]] Client Response/Progress/Benefit: [Client responded well to session, active participant. Client did well to work with fellow participants in completing the challenge activity and able to identify use of assertive approaches to conflict throughout. Client progress noted in identifying how placing more importance on another participant?s ?object of value? than his own connects with his approaches to how much value he places upon his own needs and mental health in his current relationship. Client helped the group identify strategies to improve conflict resolution such as having awareness of emotions, listening before responding, and taking time to determine you are removing personalization from the problem. Client appeared to benefit from learning various conflict resolution strategies. Client to continue IOP to promote emotional regulation and mood stability, as well as prevent decompensation.] Narrative Note: []
--- NOTE | 2018-02-10 11:29 | BH.MTP ---
Master Treatment Plan - Patient Information Program Physician:: Dr. Mornoy Primary Therapist:: Tania Nance [facility] - Psychiatric Diagnoses Psychiatric Diagnoses:: Major depressive disorder recurrent moderate. Anxiety unspecified. Personality disorder with dependent traits Diagnosis Code(s):: F 33.1 - Estimated LOS Estimated LOS (in weeks):: 6 Problem/Goal #1 - Problem/Goal #1 Stated Goal:: Client will reduce depression, feelings of hopelessness, and suicidal ideation due to Major Depressive Disorder through Intensive Outpatient Program. Description of Barriers: Pt's current living situation tends to exasperate client's anxious and depressive symptoms. Patient's focus on finding the perfect medication could be a hindrance to treatment progress if patient only focuses on medication and struggles with identifying what he has in control that could help him improve his functioning. Patient's distorted thought patterns, limited support system, and low self-esteem also could be potential barriers to treatment. Functional Impact: Patient has been declining over the past 7 months with increased isolated behaviors, increased suicidal ideation, and difficulty completing ADLs. Patient's mental health symptoms contributed to patient not being able to work, socially patient is isolated and does not have a healthy support system. Goal Relevant Strengths/Supports: Patient is intelligent, resilient, and motivated to get better. - Objectives Objective #1 Stated Objective: Identify and replace 3-4 negative self-talk messages that reinforce depressive symptoms. Interventions: Therapist will help client identify distorted, negative beliefs about self and world and replace those messages with positive, affirmative messages. Discharge Criteria: Client will have achieved this goal when can identify at least 3 negative self-talk messages and replace those messages with positive, affirmative messages. Target Date: 03/03/18 Review Date: 03/17/18 Objective #2 Stated Objective: Pt will decrease depressive symptoms AEB pts score on the DSM 5 cross-cutting measure. Interventions: Through groups and individual therapy, pt will be provided with education on cognitive distortions, mistaken beliefs, and identifying and combating negative self-talk. Therapist will assist pt with getting back into the activities she once enjoyed as well as increasing healthy coping strategies. Discharge Criteria: Pt will have met this goal when pts score on the DSM 5 cross cutting measure for depression has been decreased. Target Date: 03/03/18 Review Date: 03/17/18 Problem/Goal #2 - Problem/Goal #2 Stated Goal:: Reduce overall frequency, intensity, and duration of the anxiety so that daily functioning is not impaired. Description of Barriers: Pt's current living situation tends to exasperate client's anxious and depressive symptoms. Patient's focus on finding the perfect medication could be a hindrance to treatment progress if patient only focuses on medication and struggles with identifying what he has in control that could help him improve his functioning. Patient's distorted thought patterns, limited support system, and low self-esteem also could be potential barriers to treatment. Functional Impact: Patient has been declining over the past 7 months with increased isolated behaviors, increased suicidal ideation, and difficulty completing ADLs. Patient's mental health symptoms contributed to patient not being able to work, socially patient is isolated and does not have a healthy support system. Goal Relevant Strengths/Supports: Patient is intelligent, resilient, and motivated to get better. - Objectives Objective #1 Stated Objective: Client will identify and utilize 2-3 coping strategies to use when feeling anxious and/or overwhelmed. Interventions: Therapist will help client process triggers to increased symptoms, and then identify ways to manage these feelings and thoughts. Therapist will also work on helping client feel less isolated and understand better behaviors and escalating tendencies. Discharge Criteria: Client will have met this goal when can safely use at least 2 coping strategies when feeling anxious or overwhelmed. Target Date: 03/17/18 Review Date: 03/03/18 Objective #2 Stated Objective: Pt will decrease anxious symptoms AEB pts score on the DSM 5 cross-cutting measure. Interventions: Through groups and individual therapy, pt will be provided education about anxietys impact on body and common physiological reaction to anxiety. Therapist will teach pt appropriate breathing techniques and build healthy coping skills to manage daily anxieties. Discharge Criteria: Pt will have met this goal when pts score on the DSM 5 cross cutting measure for anxiety has been decreased. Target Date: 03/17/18 Review Date: 03/03/18
--- NOTE | 2018-02-10 22:34 | BH.MDN ---
Multi-Disciplinary Note - Note 60-min Individual Time Started:: 09:00 Date: 02/10/18 Purpose of session/treatment goals addressed:: Purpose of session was to identify treatment goals for IOP and gather additional background information. Eye Contact:: Fair Motor Activity:: Appropriate Appearance:: Casual Speech:: Appropriate Mood:: Euthymic, Dysthymic Affect:: Full - at start of session, Constricted - affect changed once started talking about past Thoughts:: Racing, Circular, No evidence of hallucinations/delusions noted Time Stopped:: 09:50
--- NOTE | 2018-02-11 09:00 | BH.SGPN.GN ---
Behaviors/Verbalizations/Mental Status: [] Pt eye contact poor, casually dressed, motor activity restless, speech monotone, mood depressed, blunted affect, thoughts linear and intact, no evidence of delusions or hallucinations. On symptom tracker pt indicated a score of 3 out of 5 for thoughts of suicide and a score of 2 out of 5 for intention to harm self. After group session IOP therapist checked-in with pt to assess lethality. Pt contracted for safety, agreed will go to nearest emergency room if unable to maintain safety. Client Response/Progress/Benefit: [] Patient reported I am feeling extremely sedated this morning. Patient shared he is feeling discouraged because feeling like he is regressing compared to yesterday. Patient shared he had a glimpse of improved mood yesterday but when he woke up this morning has felt disconnected and depressed. Patient reported on a positive he did go to the gym yesterday and cooked dinner. Patient unsure what he will be able to accomplish today due to feeling down and exhausted. Patient reported he is unsure of what to do about his medications because he thought he found the right combo but now does not seem like that is working. Patient seemed to benefit from expressing thoughts and emotions as well as receiving support from peers. Patient to continue IOP level of care to decrease depression, improve daily functioning, and prevent decompensation. Narrative Note: []
--- NOTE | 2018-02-11 10:25 | BH.SGPN.GN ---
Behaviors/Verbalizations/Mental Status: []Client alert and oriented, neatly dressed and groomed. Eye contact poor. Motor activity appropriate. Speech monotone. Affect flat, mood dysthymic. Thoughts linear, logical, no signs of hallucinations or delusions. Client Response/Progress/Benefit: []Client responded well to session, participating occasionally. Client connected with the quote sharing, ?our upbringing impacts if we view things positively or negatively.? ?Client stated his mother was judgmental towards people growing up which caused client to be ?hypervigilant? that people are always judging him. Client appeared somewhat disengaged, he but listened as the group discussed the different types of distortions and client reported using mind-reading. Client agreed with peers that cognitive distortions further worsen mental health symptoms, but client seemed to have limited insight to the extent he uses cognitive distortions which may hinder progress. Client appeared to benefit from gaining insight to the different types of cognitive distortions. Client to continue IOP as he continues to report depressed mood, anhedonia, and issues with sleep.
--- NOTE | 2018-02-11 11:25 | BH.SGPN.GN ---
Behaviors/Verbalizations/Mental Status: []Client alert and oriented, neatly dressed and groomed. Eye contact fair. Motor activity appropriate. Speech monotone. Affect flat, mood dysthymic. Thoughts linear, logical, no signs of hallucinations or delusions. Client Response/Progress/Benefit: []Client responded somewhat well to session, engaged in activity, but declining to challenge his negative thoughts. Client was active during the group activity and connected that overcoming cognitive distortions takes a lot of time, practice, and energy. However, client shared his negative thoughts are ?too frequent to challenge.? Client identified his thought of ?nothing works I should just give up? which client identified as all or nothing thinking. Client reluctant to challenge this thought, but he seemed receptive to group feedback on how client could challenge this thought. Client appeared to benefit from gaining insight to the effort it takes to replace negative thoughts and from challenging a negative thought during group.
--- NOTE | 2018-02-13 09:00 | BH.SGPN.GN ---
Behaviors/Verbalizations/Mental Status: [] Eye contact was poor. Motor Activity was restless. Appearance was casual. Speech was appropriate. Mood was depressed. Affect was flat. Thoughts are linear and logical. No evidence of hallucinations/delusions noted. Therapist reviewed daily mood tracker for suicidal ideations and pt had reported a 3 out of 5. Individual therapist notified. Chronic SI for past several months. Client Response/Progress/Benefit: [] Pt was quiet for a majority of the session however did provide positive and insightful feedback to peers. Shared that he has been struggling and continues to feel that his medications are only method to improve mood. Continues to be focused on his hypersensitivity to medications. Conflicting reports stating that the Lexapro is making him lethargic and then stating it causes activation and he can't sleep. Current living situation and relationship conflicts appear to be significant contributor to his symptoms which group had pointed out. Some insight stating that I need to call my uncle and family to help me move out. Reports improved mood last week and early this week however regression. Group was supportive and provided feedback and encouragement. Limited progress noted. Fixated on medications and is not attempting to use any thought stopping strategies, copings skills, and or internal/external coping skills. Ruminates on medications and how they affect him. Has not followed through with psychiatrist's recommendation for medications. Will continue in IOP to improve daily functioning, decrease depressive symptoms, decrease chronic SI, and prevent decompensation. Narrative Note: []
--- NOTE | 2018-02-13 11:07 | BH.SGPN.GN ---
Behaviors/Verbalizations/Mental Status: []Client alert and oriented, neatly dressed and groomed. Eye contact fair. Motor activity appropriate. Speech within normal limits. Affect flat, mood dysthymic. Thoughts linear, logical, no signs of hallucinations or delusions. Client Response/Progress/Benefit: []Client responded somewhat well to session, participating in session, but providing pessimistic perspectives at times. Client stated fear of failure, fear of the unknown, and co-dependency have kept client in an unhealthy relationship. Client shared his fear of failure has caused increased loneliness, depression and anxiety. Client listened as the group identified strategies to overcoming his fear of failure such as seeking positive support, identifying the benefits of change, and challenging negative thoughts. Client appeared to benefit from increasing awareness of how fear of failure has impact clients life and from learning strategies to overcome fear of failure. Progress limited as client can verbalize coping skills and strategies that may improve his current stressors and symptoms, but then client disqualifies the strategies sharing they will not work for his situation. Client to continue IOP to prevent decompensation and improve mood stability.
--- NOTE | 2018-02-13 14:24 | BH.NOTE ---
: Inpatient Note - Notes Behavioral Health Inpatient Note: Attempted to contact [facility] to get prior authorization for Viibryd prescription as requested by client. However, neither pharmacy had the prescription, and client notes that he has not taken it to a pharmacy yet. Client given fax number for pharmacy to send PA information, and informed that it may take up to a week or more since we are entering a holiday weekend. Mary Kay Naidu, BSN, RN
--- NOTE | 2018-02-13 15:14 | BH.MDN ---
Multi-Disciplinary Note - Note 30-min Individual Time Started:: 10:00 Date: 02/13/18 Purpose of session/treatment goals addressed:: The purpose of this session was to check-in with client regarding current symptoms and stressors as well as assess for lethality and establish a weekend safety plan. Another purpose was to work with client on identifying strategies to begin reducing anxiety producing thoughts. Eye Contact:: Intense Motor Activity:: Restless - Client shaking legs and frequently shifting in chair or putting head in hands Appearance:: Neat - grooming well tended to, Casual Speech:: Appropriate, Other - monotone Mood:: Anxious, Depressed Affect:: Congruent Thoughts:: Logical, Racing, Other - thinking appearing preoccupied and calculative in nature regarding medication concerns Staff Interventions:: Therapist asked open-ended and furthering questions to gather information regarding client current symptoms, stressors, and identified supports. Used active and reflective listening, as well as empathic responses to provide support and address Client concerns. Discussed with Client relationship between worry and depression, as well as impact of worry on managing mental health symptoms. Utilized AL techniques to assist Client with identifying potential healthy skills he may use during times of increased anxiety and depression. Worked with Client to establish a safety plan for the weekend. Completed lethality risk assessment and provided Client with a handout on managing anxious thoughts. Client Response:: Client receptive of meetng with this therapist following process group this morning as CLient had indicated elevated scores for suicidal ideation on the daily symptom tracker. CLient was able to openly discuss factors he identifies as contributing to current mood and indicated that his greatest source of frustration has been associated with ongoing medication issues. CLient discussed beliefs that his prescription for has been causing adverse side effects and as a result is further amplifying depressive symptoms and racing, intrusive thoughts. Client discussed that he does not know how much longer he can continue to deal with medication difficulties and expressed I just can't live like this. He went on to indicate beliefs that his quality of life continues to decompensate which is leaving him increasingly hopeless and helpless. Client struggled to identify areas of his life he feels are positive; however, did indicate that being alive and not giving up on himself are two area he can be proud of in this moment. Client went on to explain not feeling suicidal as much as he is burntout and frustrated. Client expressed a strong desire to get back to doing the things he used to enjoy, but feels he will be unable to do so until he is on the right medications. Client went on to readdress medication frustrations and shared a desire to switch to a new anti-depressant that he had researched. CLient responded well to this therapist gently challenging client use of externalization and was somewhat open to discussing stressors outside of medication that may be impacting his mental health. With further discussing CLient was able to recognize that ongoing relationship tension, limited support, and negative thinking appears to have some impact on CLient current emotional health and wellbeing. He indicated that it's probably 80/20 explaining that 80% of his mental health struggles are related to stress outside of medication and 20% are medication related. CLient went on to share knowing that his current living environment is toxic to his ability to make progress towards treatment goals. Client discussed wanting to reach out to his family to help him move out of the environment but expressed that he is afraid to confront what moving out implies. Client shared fearing being a failure and beliefs that it means he has given up on his marraige. He appears to have limited insight into the impact his preoccupied thoughts related to medication as well as ongoing use of distorted thinking patterns have had on client ability to internalize treatment concepts learned and make consistent progress towards treatment goals. Client no longer expressing suicidal ideation, plan, or intent by end of session and willing to work with therapist on creating a safety plan for the weekend. Client expressed plans to call his uncle and reach out to family about moving out as well as set aside some time to begin playing his guitar again. Client indicates feeling he is able to maintain safety at this time and is aware of and willing to reach out to local crisis resources should he feel unable to maintain safety at anytime. Risks/Concerns:: Client indicated SI and Intent as a 3/5 on daily symptom tracker this morning, however when further discussing, Client notes his SI is more passive in nature and related to medication frustrations due to adverse side effects experienced. At time of individual session Client denies any intent and verbalizes an ability to maintain safety throughout the weekend. Client willing to complete a safety plan for the weekend and expressed feeling able to keep himself safe until attending program again on Friday, 02/17. CLient aware of local crisis resources available and is willing to utilize should he feel unable to maintain safety. Client future oriented and indicates plans to call his uncle as well as attempt to play his guitar this weekend. Progress Toward Goals/Plan:: Limited progress. CLient continues to struggle with significant medication preoccupation which has acted as a significant barrier to client ability to make steady treatment progress. Client appears to have some insight regarding healthy coping skills and the relationship between his thoughts, feelings, and behaviors; however, continues to experience difficulties in challenging and replacing his distorted and intrusive thoughts in order to make observable gains in treatment. CLient continues to struggle with passive suicidal ideation and negative thinking, though is making progress in his ability to maintain stability and identify motivations to live. CLient is additionally improving somewhat in receptivity of working on aspects of treatment outside of medication management such as effective communication and healthy means of coping. Client recommended continued IOP tx to prevent decompensation, maintain safety, and further improve application of symptom management skills. Time Stopped:: 10:35
--- NOTE | 2018-03-31 16:34 | BH.MDN_ITS ---
Multi-Disciplinary Note - Note 60-min Individual Time Started:: 12:30 Date: 02/03/18 Purpose of session/treatment goals addressed:: Purpose of session was to check- in with pt about first day in IOP, assess current symptoms and stressors. Eye Contact:: Fair, Other - at times closed eyes while talking Motor Activity:: Restless Appearance:: Neat Speech:: Rambling Mood:: Anxious, Depressed Affect:: Flat Thoughts:: Circular, No evidence of hallucinations/delusions noted Staff Interventions:: Therapist used open ended questions to elicit pt's thoughts about first day in IOP. Therapist processed pt's current symptoms and stressors, validated current emotions. Therapist assesed lethality and discussed safety plan if pt feels cannot maintain safety. Therapist provided support by using active listening and validating emotions. Client Response:: Pt shared he enjoyed his first day in the program because he needs to keep getting out of the house and the content discussed in group sessions was helpful. Pt Time Stopped:: 13:50
== END 2018-02-13 23:59 ==
LOC: BHIOP 09:00
PROVIDERS: Visit Provider Psychiatry & Neurology Psychiatry
DX: F33.1 Major depressive disorder, recurrent, moderate (principal); F41.1 Generalized anxiety disorder
CPT/HCPCS: H0035; 90832; 90837; 90853

== ENCOUNTER 2018-02-17 09:00 | Outpatient (RCR) | payer MEDICARE, SELFPAY ==
--- NOTE | 2018-02-17 09:05 | BH.SGPN.GN ---
Behaviors/Verbalizations/Mental Status: [] Pt eye contact fair, casually dressed, motor activity restless, speech normal rate and tone, mood anxious, congruent affect, thoughts linear and logical, no evidence of delusions or hallucinations. Reviewed client?s symptom tracker, pt indicated a score of 1 out of 5 for thoughts of suicide and a 0 out of 5 for intent to harm self. This demonstrates significant decrease in SI and intent compared to last week's scores. Pt verbalized he would not harm himself because feels more hopeful now that he has a plan of action for his life. Client Response/Progress/Benefit: [] Pt reported he had a really rough weekend because he was alone and his plan to go visit family fell through. Pt shared he decided to get off his antidepressant and did not fill the new prescription he received on Friday. Pt reported Friday was the lowest I've been in a long time, reported he thought about ending it all. Pt shared he was able to get through Friday and had better days on Friday and Friday. 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 Pt shared he is waiting to hear back from his uncle if there are any current job openings. Pt reported if he can secure a job with his uncle then he can save money to purchase a truck and a camper so he can start traveling again. Pt shared he recognized he needs to get back into doing the things he used to enjoy and do those things independently so he can find myself again. Pt reported he is continuing to feel some physiological side effects from the medications, but is feeling more hopeful now that he has a plan in place. Pt showing progress with identifying a future plan and reported he went for hikes and stayed active on Friday and Friday. Pt to continue IOP level of care to improve mood stability, improve daily functioning, and prevent decompensation. Narrative Note: []
--- NOTE | 2018-02-17 10:12 | BH.SGPN.GN ---
Behaviors/Verbalizations/Mental Status: [Client alert and oriented, casually dressed and neatly groomed. Eye contact fair, often closed when speaking. Motor activity appropriate. Speech within normal limits. Affect constricted, mood depressed. Thoughts linear, logical, no signs of hallucinations or delusions. ] Client Response/Progress/Benefit: [Pt receptive of session, mostly engaged throughout though at times appearing distracted by his own thoughts. Appeared to connect with the topic of Communication and discussed how miscommunication can increase self-deprecating thoughts and lead to relationship discord. Provided personal experience. Pt worked with group to identify potential barriers to communication and noted that pride, depression, and past negative experiences can negatively impact mental health. Pt was actively listening during discussion on different communication styles and at times provided thoughts regarding each style's pros and cons. Pt shared relating to the communication style of assertive with most people but passive or passive-aggressive with certain supports. Pt shared wanting to become more assertive and able o effectively communicate despite fears and frustrations. Pt appeared to benefit from psycho-education provided regarding communication and it's impacts on mental health. Progress noted in pt ability to identify own communication style and it's impact on his mental health. Pt recommended continued IOP tx to promote healthy change behaviors, decrease depressive sx, and prevent decompensating.] Narrative Note: []
--- NOTE | 2018-02-17 11:26 | BH.SGPN.GN ---
Behaviors/Verbalizations/Mental Status: []Client alert and oriented, casual appearance. Eye contact good. Motor activity appropriate. Speech within normal limits. Affect congruent, mood depressed, agitated. Thoughts linear, logical, no signs of hallucinations or delusions. Client Response/Progress/Benefit: []Client active participant AEB contributions and engagement throughout. Client took an active role during the activity that encouraged clients to practice clear, specific communication. At times struggling with monopolizing conversation but receptive of others input. Group identified strategies that helped the group communicate more effectively during the activity. Client identified communication goal which is to practice being more consistent in his communication with supports. Client seemed to benefit from increased insight into how his communication style impacts mental health and identifying strategies for increasing effective communication skills. Progress noted as client reports increased small goal completion; however, continues to report depression and distorted thinking patterns impacting reduction of sx severity. Will continue IOP tx to prevent decompensation, improve mood stability, and promote consistent use of coping skills. Narrative Note: []
--- NOTE | 2018-02-18 09:03 | BH.SGPN.GN ---
Behaviors/Verbalizations/Mental Status: []Client alert and oriented, neatly dressed and groomed. Eye contact fair. Motor activity appropriate. Speech, monotone otherwise within normal limits. Affect flat, mood euthymic, anxious. Thoughts linear, logical, no signs of hallucinations or delusions. Reviewed clients symptom tracker, no risk for suicidal ideation, plan, or intent as of 02/18/18. Client reported being hopeful several times during check-in. Client Response/Progress/Benefit: []Client responded somewhat well to session, on his phone when not sharing. Client reports feeling tired, hopeful, leery today as client is starting to feel better after a challenging weekend through reaching out to family, setting personal goals, and spending more time outside. Client shared he is leery about being hopeful stating in the past his good days have only lasted about three to four days. Although client is currently not taking medications, he continues to be medication and vitamin focused sharing he plans to start taking a hormonal vitamin to help balance me out. Client seemed to benefit from reflecting on his positives. Client seems to be progressing as shown by clients improved outlook and statements of hopefulness. Client continues to report ongoing anxiety, issues with sleep, and difficulty addressing his relationship issues. Client to continue IOP to prevent decompensation and increase mood stability.
--- NOTE | 2018-02-18 10:20 | BH.SGPN.GN ---
Behaviors/Verbalizations/Mental Status: [] Pt eye contact good, casually dressed, motor activity appropriate, speech normal rate and tone, mood euthymic, congruent affect, thoughts linear and intact, no evidence of delusions or hallucinations. Client Response/Progress/Benefit: [] Client contributed to discussion and listened attentively to others. Client connected with the quote reporting he agrees that at times he can choose one thought of another which helps reduce his stress, but when there are 2 me stressors and becomes increasingly difficult to believe he can reframe or challenge his thoughts. Client able to identify the impact stress has been himself with impacting his concentration, decreasing energy, unclear thought process, and difficulty making decisions. Client identified some of his stressors include: Relationship trouble, health issues, living situation, financial problems, family, and worrying over future happiness. Client shared the distress her to be worrying about future happiness to because it concerns him that he will not get better or will not experience happiness. Client seemed to benefit from increasing self awareness of his current stressors. Client to continue IOP level of care to stabilize mood, improve daily functioning and prevent decompensation. Narrative Note: []
--- NOTE | 2018-02-18 11:30 | BH.SGPN.GN ---
Behaviors/Verbalizations/Mental Status: []Pt eye contact fair, casually dressed, motor activity restless, speech normal rate and tone, mood anxious, congruent affect, thoughts linear and logical, no evidence of delusions or hallucinations. Client Response/Progress/Benefit: []Client active participant, contributing his thoughts and feelings, and provided support to peers. Client worked cooperatively with peers during activity, at times appeared to be frustrated and seemed to lack awareness that he was making unhelpful comments towards others when stressed. Client connected different stressors likely will need different strategies to help decrease the specific stressor, don't get caught up on one way to reduce stress. Client connected with the 4 A's (Accept, Adapt, Avoid, and Alter) of decreasing stress, recognizing there are situations he puts himself in that results in increased stress he could have avoided. Client seemed to benefit from learning about the 4 A's and engaging in activity that helped him connect specific strategies to help him manage his life stressors. Client to continue IOP level of care to decrease anxiety, improve daily functioning, and prevent decompensation. Narrative Note: []
--- NOTE | 2018-02-19 10:24 | BH.SGPN.GN ---
Behaviors/Verbalizations/Mental Status: []Client alert and oriented, neatly dressed and groomed. Eye contact fair- on phone at times. Motor activity appropriate. Speech monotone, otherwise within normal limits. Affect flat, mood dysthymic, pessimistic. Thoughts circular, logical, no signs of hallucinations or delusions. Client Response/Progress/Benefit: []client responded well to session, active participant, but client brought up a topic that triggered a peer and client continued to discuss topic after attempted redirection from therapist. Client appeared to connect with the quote sharing, the quote is awesome and so true, but its hard to get there. Client reported he recognizes staying stuck in a negative situation does not help ones mental health, but client shared depression makes it impossible to move forward because its constantly feeding you negative. Client processed with the group the different emotions associated with change and how these emotions impact how one manages change. Client stated for him, change typically makes client feel anxious, cautious, and fearful which makes client more hesitant to change. Client reported his co-dependency makes it challenging to change and has kept client stuck in toxic relationships. Client appeared to benefit from increasing awareness of how emotions impact how one manages change. Client seems to be progressing as shown by his reduced suicidal ideation, but client continues to struggle with over-researching which increases his medication-focus and lack of implementation of healthy internal coping skills.
--- NOTE | 2018-02-19 11:05 | BH.MDN ---
Multi-Disciplinary Note - Note 60-min Individual Time Started:: 09:10 Date: 02/19/18 Purpose of session/treatment goals addressed:: Purpose of session was to assess pt's current symptoms and stressors. Other tocics included: being active daily, setting boundaries, and future short term goals. Eye Contact:: Fair Motor Activity:: Appropriate Appearance:: Casual Speech:: Rambling Mood:: Euthymic Affect:: Congruent Thoughts:: Circular, No evidence of hallucinations/delusions noted Staff Interventions:: Therapist used open ended questions to elicit pt's current symptoms and stressors. Therapist discussed progress and elicited pt's thoughts on current barriers to progress. Therapist inquired what pt would like to focus on therapeutically besides his interactions with medications since that is the focus of [facility] psychiatrist. Therapist provided support by using active listening and providing feedback. Client Response:: Pt reported he is doing much better than he has in weeks. Pt shared since getting off all psychiatric medications he is feeling more energized, improved decision making, and less cloudiness. Pt reported the main concern is not being able to sleep since stopping the medications. Pt stated he is trying to adjust the time he take his supplements and other medications to see if that has impact on his sleep. Understands he should consult with his doctor before making medication changes. Pt shared this weekend he plans to go look at trucks because despite not getting sleep he still has his goal in sight of finding a job, eventually purchasing a camper so he can travel around the country. Pt responded well to being challenged about his distorted thoughts that he won't be able to take it if he continues to not sleep. Pt recognized he is predicting the future and it won't help his situation. Pt reported in addition to looking at trucks he will try to be active throughout the weekend. Pt agreeable to get out of the house and either go hiking or biking to stay active. Risks/Concerns:: Pt currently denies suicidial ideation, plan or intention to date. Pt's verbalizations have indicated some thoughts of harm in the future if he doesn't sleep as a result [facility] therapist assessed lethality and pt contracted for safety. Progress Toward Goals/Plan:: Pt is demonstrating progress with reporting decrease in both depression and anxiety. Pt is being more active throughout his day by going hiking, biking, and doing other task and responsibilities that keep him out of his house. Pt shared he also has decreased his research of medications from 6-8 hours a day to about 3 hours in the evening. Pt showing increased awareness into the obsessive nature of his research of medications. Pt's decline in sleep could be hindrance to treatment progress given pt's distroted thought patterns that I won't be able to handle it if I continue to not sleep. Pt to continue IOP level of care to maintain gains, decrease distorted thought patterns, improve daily functioning, and prevent decompensation. Time Stopped:: 10:15
--- NOTE | 2018-02-19 11:33 | BH.SGPN.GN ---
Behaviors/Verbalizations/Mental Status: []Client alert and oriented, neatly dressed and groomed. Eye contact good. Motor activity appropriate. Speech within normal limits. Affect flat, mood dysthymic, pessimistic. Thoughts circular, logical, no signs of hallucinations or delusions. Client Response/Progress/Benefit: []Client responded well to session, engaged in discussion, but reporting lack of concentration at times. Client engaged in the group activity that portrayed what change can look like and feel like. Client reported the activity reminded him that change does not always go as planned and that is normal. Client shared anytime I do something out of my comfort zone he experiences a positive change. Client helped the group create strategies to better manage change such as weighing pros and cons, identifying barriers, and managing emotions. Client appeared to benefit from identifying times when change was positive. Progress noted in clients ability to maintain safety and report of improved mood, but continues to struggle with managing distorted thoughts and lack of implementation of internal coping skills.
--- NOTE | 2018-02-20 09:06 | BH.MDN_ITS ---
Multi-Disciplinary Note - Note 60-min Individual Time Started:: 09:10 Date: 02/19/18 Purpose of session/treatment goals addressed:: Purpose of session was to assess pt's current symptoms and stressors. Other tocics included: being active daily, setting boundaries, and future short term goals. Eye Contact:: Fair Motor Activity:: Appropriate Appearance:: Casual Speech:: Rambling Mood:: Euthymic Affect:: Congruent Thoughts:: Circular, No evidence of hallucinations/delusions noted Staff Interventions:: Therapist used open ended questions to elicit pt's current symptoms and stressors. Therapist discussed progress and elicited pt's thoughts on current barriers to progress. Therapist inquired what pt would like to focus on therapeutically besides his interactions with medications since that is the focus of [facility] psychiatrist. Therapist provided support by using active listening and providing feedback. Client Response:: Pt reported he is doing much better than he has in weeks. Pt shared since getting off all psychiatric medications he is feeling more energized, improved decision making, and less cloudiness. Pt reported the main concern is not being able to sleep since stopping the medications. Pt stated he is trying to adjust the time he take his supplements and other medications to see if that has impact on his sleep. Understands he should consult with his doctor before making medication changes. Pt shared this weekend he plans to go look at trucks because despite not getting sleep he still has his goal in sight of finding a job, eventually purchasing a camper so he can travel around the [place]. Pt responded well to being challenged about his distorted thoughts that he won't be able to take it if he continues to not sleep. Pt recognized he is predicting the future and it won't help his situation. Pt reported in addition to looking at trucks he will try to be active throughout the weekend. Pt agreeable to get out of the house and either go hiking or biking to stay active. Risks/Concerns:: Pt currently denies suicidial ideation, plan or intention to date. Pt's verbalizations have indicated some thoughts of harm in the future if he doesn't sleep as a result [facility] therapist assessed lethality and pt contracted for safety. Progress Toward Goals/Plan:: Pt is demonstrating progress with reporting decrease in both depression and anxiety. Pt is being more active throughout his day by going hiking, biking, and doing other task and responsibilities that keep him out of his house. Pt shared he also has decreased his research of medications from 6-8 hours a day to about 3 hours in the evening. Pt showing increased awareness into the obsessive nature of his research of medications. Pt 's decline in sleep could be hindrance to treatment progress given pt's distroted thought patterns that I won't be able to handle it if I continue to not sleep. Pt to continue IOP level of care to maintain gains, decrease distorted thought patterns, improve daily functioning, and prevent decompensation. Time Stopped:: 10:15
--- NOTE | 2018-02-20 09:07 | BH.SGPN.GN ---
Behaviors/Verbalizations/Mental Status: [Client maintained good -at times intense eye contact, casually dressed, motor activity restless - moving in chair frequently rubbing face and eyes w/hands, speech normal rate and tone - preoccupied, mood frustrated, pessimistic, affect congruent, thoughts circular and preoccupied with current stressors, no evidence of delusions or hallucinations. Therapist reviewed clients symptom tracker to assess for intensity of mental health symptoms and identify risk for suicide. No signs of suicidal ideation, plan, or intent to date.] Client Response/Progress/Benefit: [Client receptive of session and willing to engage throughout. He was an active contributor to the group however at times appeared to provide feedback that was more negative in nature which seemed to impact the group dynamic. Client expressed feeling positive now that his symptoms of anxiety and depression have begun to subside which Client attributes to stopping medications. Client spent a duration of his time discussing various concerns with lack of sleep and appeared to be preoccupied with what may be contributing to current changes in sleep cycle. He benefitted from encouragement and support provided by the group as well as being gently challenged to identify his use of distorted thinking patterns. CLient continues to struggle with disqualifying the positive and is recommended continued IOP tx to prevent decompensation, improve ability to identify and replace negative or distorted thought patterns and decrease preoccupation with external locus of control. ] Narrative Note: []
--- NOTE | 2018-02-20 10:15 | BH.SGPN.GN ---
Behaviors/Verbalizations/Mental Status: []Pt eye contact fair, casually dressed, motor activity restless, speech normal rate and tone, mood depressed, flat affect, thoughts linear and logical, no evidence of delusions or hallucinations. Client Response/Progress/Benefit: []Pt contributed thoughts and ideas to discussion, at times pt tended to focus on the negative and not open to reframing his thoughts. Pt reported the easy path is never the right path, when discussing the quote. Pt stated nothing good comes easily. Pt shared it's important to try to get on the right path because if continue down the path of unhealthy coping it will board turner negatively. During challenge activity pt initially showed leadership then when appeared to be frustrated seemed to shut down and wanted to give up. Pt connected the activity to his life because sometimes it feels he just keeps falling into pitfalls and can't get out. Pt seemed to benefit from increased awareness of impact personal pitfalls can have on progress. Pt's continued focus on the negative could be hindrance to treatment process. Narrative Note: []
--- NOTE | 2018-02-20 11:25 | BH.SGPN.GN ---
Behaviors/Verbalizations/Mental Status: []Pt eye contact fair, casually dressed, motor activity restless, speech normal rate and tone, mood depressed, flat affect, thoughts linear and logical, no evidence of delusions or hallucinations. Client Response/Progress/Benefit: []Pt shared his thoughts and ideas with group, provided feedback to peers. Pt identified his pitfalls to be a lot of extenral situations that are out of his control including his environment and loneliness. Pt shared his situation is impacted by things that are out of his control and struggled with identifying a pitfall that he was in his control that he could do somethign about. Pt mostly focused on the fact his lack of sleep is having the most impact on his ability to function currently. Pt reported his goals for the weekend are to stay active, research trucks, and get sleep by rearranging his medication doses. Pt progress hindered by continued focus on finding the right medication, lack of awareness of what he can do to improve situation and not applying learned skills. Narrative Note: []
--- NOTE | 2018-02-23 09:05 | BH.SGPN.GN ---
Behaviors/Verbalizations/Mental Status: [Client maintained good eye contact, casually and neatly dressed - well dressed, motor activity appropriate - at times exhibiting restlessness AEB shifting in seat at various points, speech normal rate and soft tone - circumstantial in nature, mood irritable and depressed - expressed as sick, affect congruent to mood, thoughts preoccupied regarding negative circumstances surrounding lack of sleep, no evidence of delusions or hallucinations. Therapist reviewed clients symptom tracker to assess for intensity of mental health symptoms and identify risk for suicide. Client reports a 4/5 for suicidal ideation which is normal to client baseline and 3/5 for intent. Therapist discussed concerns with client individual therapist who will follow-up with client prior to end of group to further assess for safety. ] Client Response/Progress/Benefit: [Client receptive of session and was actively engaged in both discussion and processing portions. He provided feedback and encouragement to fellow participants on several occasions; however, at several points struggles with boundaries and over-sharing cynical thoughts which had a negative impact on the dynamic of the group. Client discussed that he continues to have difficulties in sleeping though is less drowsy this morning. He went on to share fearing that he will not be able to continue to move forward with progress if he cannot get his sleep under control. Client did well to identify some areas in which he had accomplished small goals over the weekend including; looking for a truck and an apartment, making a doctor's appointment, and going to [place]. Despite Client ability to identify these positives and the potential positive impact of applying skills such as a consistent routine and challenging his negative thoughts, he continues to express beliefs that he will not be able to make progress until his body is chemically in balance. This focus on external factors is making consistent treatment progress difficult. He appeared to benefit from being challenged to focus on more positive in his daily life and ways to plan ahead for managing potential future stressors (i.e. fear of increased seasonal depression). Recommended continued IOP tx to prevent decompensation and maintain safety, as well as improve Client ability to better manage mental health sx through healthy skill application. ] Narrative Note: []
--- NOTE | 2018-02-23 10:20 | BH.SGPN.GN ---
Behaviors/Verbalizations/Mental Status: []Client alert and oriented, neatly dressed and groomed. Eye contact fair-on his phone at times. Motor activity appropriate. Speech within normal limits. Affect constricted, mood dysthymic. Thoughts linear, logical, no signs of hallucinations or delusions Client Response/Progress/Benefit: []client responded well to session, providing insight, but going off on negative tangents at times. Client appeared to connect with the quote sharing, nothing is impossible, but it can feel that way. Client reported depression, recurrent stressors, and cognitive distortions can make some people view situations as impossible. Client stated having an impossible mindset can negatively impact mental health as it can keep a person from using healthy skills and moving forward. Client engaged in an activity that at first appeared impossible, but with different ideas and communication can be solved. Client took on a leadership role during the activity, but he was receptive to ideas from peers. Client appeared to benefit from increasing awareness of how the impossible mindset can impact mental health. Progress variable as client is able to verbalize healthy coping skills that will help improve his current symptoms, but reports lack of implementation which could hinder progress.
--- NOTE | 2018-02-25 09:00 | BH.SGPN.GN ---
Behaviors/Verbalizations/Mental Status: [] Pt eye contact fair, casually dressed, motor activity restless, speech normal rate and tone, mood depressed and anxious, flat affect, thoughts circular, no evidence of delusions or hallucinations. Reviewed client?s symptom tracker, patient indicated a score of 3 out of 5 for suicidal thoughts and a 2 out of 5 for intent to harm self. Patient's current scores indicate a decrease in suicidal thoughts and intent compared to patient's scores on Friday. Patient contracted for safety. Client Response/Progress/Benefit: [] Client reported yesterday he wants to get trucks just to help him get out of the house and get an idea of what contract he should buy. Client reported that he is not going to make a decision about what attracted by until he is getting sufficient sleep because he recognizes his decision-making is not as clear currently. Patient reported on Friday night he was able to 5 hours of sleep but yesterday he only got 2 hours of sleep. Client shared the decreasing sleep is really impacting his concentration, mood, and ability to focus. Client identified 2 positives to include: I am still here and I was able to make it to IOP today. Client focused on needing some sort of medication to help him sleep and attributing his inability to sleep due to impact of his last medications had on him. Continuing to struggle with identifying external barriers that he does have control over as to the reasons he cannot move forward. This line of thinking seems to impact his progress because client is not identifying any sort of barrier that he can do anything about. Client to continue IOP level of care to improve mood stability, improve daily functioning, and prevent decompensation. Narrative Note: []
--- NOTE | 2018-02-25 10:10 | BH.SGPN.GN ---
Behaviors/Verbalizations/Mental Status: []Client alert and oriented, neatly dressed and groomed. Eye contact poor- looking at his phone throughout the session. Motor activity appropriate. Speech monotone and engaging in side conversations at times. Affect , mood euthymic. Thoughts linear, logical, no signs of hallucinations or delusions. Client reporting inability to concentrate today. Client Response/Progress/Benefit: []Client responded somewhat well to session, reporting difficulty concentrating and was on his phone during session. Client connected with the quote sharing, those moments have the potential to open your eyes and heart if you let it Client defined crisis as any kind of shitty situation or event that alters everyday functioning. Client shared crisis can impact the body mentally, emotionally, physically, and behaviorally. Client participated in group discussion of the role coping skills play in managing crisis. Client reported crisis for him feels like things are shredded beyond repair and client has too many things to deal with at once. Client appeared to benefit from increasing awareness of how a crisis can develop and what crisis looks like for him. Progress variable as client continues to report issues with sleep and anhedonia. Client to continue IOP to prevent decompensation and increase internal locus of control as client continues to focus on external changes rather than implementing strategies learned in group.
--- NOTE | 2018-02-25 11:10 | BH.SGPN.GN ---
Behaviors/Verbalizations/Mental Status: []Client alert and oriented, neatly dressed and groomed. Eye contact good. Motor activity appropriate. Speech within normal limits, but distracting to the group at times as evidenced by client exhaling loudly, engaging in side conversations, and laughing at comments made by peers. Affect full, mood euthymic. Thoughts linear, logical, no signs of hallucinations or delusions. Client reporting inability to concentrate today stating, I'm just not all here today. Client Response/Progress/Benefit: []Client responded somewhat well to session, inconsistent engagement and distracting at times. Client able to identify warning signs that indicate client may be heading towards panic or crisis. Client identified his top warning signs as eating less, sleeping less, and drop in functioning. Client helped the group identify coping skills for both crisis prevention and de-escalation. Client created a crisis survival kit that included a rubber band to remind client to be mindful and a straw for breathing and to give client a distraction. Client appeared to benefit from creating a crisis survival kit that reminded client of healthy coping skills to use during crisis. Client to continue IOP to prevent decompensation and increase use of internal coping skills.
--- NOTE | 2018-02-26 11:14 | BH.MDN_ITS ---
Multi-Disciplinary Note - Note 60-min Individual Time Started:: 11:05 Date: 02/23/18 Purpose of session/treatment goals addressed:: Pt appeared to be in distress and requested individual session with IOP therapist. Coping strategies, distorted thought patterns, and lethality discussed. Eye Contact:: Fair Motor Activity:: Restless Appearance:: Casual Speech:: Rambling Mood:: Depressed, Other - tearful Affect:: Congruent Thoughts:: Circular, No evidence of hallucinations/delusions noted Staff Interventions:: Therapist used open ended questions to elicit pt's current symptoms and stressors. Therapist validated pt's emotions. Therapist gently challenged pt's distorted thought patterns, assisted pt with recognizing impact negative thoughts have on mood. Therapist reviewed healthy coping skills , assessed for lethality and contracted for safety. Client Response:: Pt reported he was having such a difficult time staying focused in group becaue he hasn't slept very well in many days. Pt shared I dont know how much longer I can take this. Pt reported he doesn't know what he will do if he can't sleep. Pt not receptive to strategies that could be helpful to improve sleep quality. Pt disqualified ideas because he stated I have tried everything, but nothing works. Pt more focused on finding a medication that will help him sleep, reported at this point he would be open to taking Ambien just so he can get more than 2 hours of sleep. Pt reported he knows IOP therapist can't do anything about the medication aspect, but just needed to talk to someone about how he was feeling. Pt shared he will not kill himself, agreed to go to nearest emergency room or call 911 if can't maintain safety. Pt asked Am I a hopeless case. Pt responded well to being challenged that his negative and distorted thoughts keep him stuck from progress. Also, gained insight that by disqualifying new strategies and ideas before he tries anything also doesn't help his situation. Pt reported he will try to get out of the house because he knows when he was hiking, biking, and being active last week he felt a lot better. Risks/Concerns:: Pt continues to have thoughts of suicide, but denies plan, access to lethal means, or intention to kill self. Pt contracted for safety, agreeable to go to emergency room or call 911 if can't maintain safety. pt will be closely monitored while in IOP. Progress Toward Goals/Plan:: Pt progress decompensating due to pt not being able to sleep, which has increased his mental health symptoms and decreased motivation to use healthy coping skills. Pt progress also impacted by pt not willing to try new ideas because he already knows the idea won't work. Pt has insight into some of the things he does that doesn't help his progress, but lacks judgement to try various skills and strategies to help his situation. Pt to continue IOP level of care to stabilize moods, decrease SI, and prevent further decompensation. Time Stopped:: 12:00
--- NOTE | 2018-02-27 09:00 | BH.SGPN.GN ---
Behaviors/Verbalizations/Mental Status: []Client alert and oriented, neatly dressed and groomed. Eye contact poor, closing his eyes while sharing with group. Motor activity appropriate. Speech within normal limits. Affect flat, mood euthymic. Thoughts circular-returning to issues with sleep, no signs of hallucinations or delusions. Reviewed clients symptom tracker, no risk for suicidal ideation, plan, or intent as of 02/27/18. Client Response/Progress/Benefit: []Client responded well to session, providing supportive statements. Client reports feeling beyond the definition of exhausted but determined today as client continues to struggle with sleep, but he was able to take a step towards independence this week. Client identified his positives today as buying a truck last night without needing the help of his and also accepting that he needs to use other coping skills besides relying on medications. Client identified lack of sleep as his negative today. Client appeared to benefit from reflecting on positives in his treatment. Client seems to be progressing as shown by his reduced suicidal ideation and report of determination, but he continues to struggle with inconsistent boundaries and application of internal coping skills.
--- NOTE | 2018-02-27 10:18 | BH.SGPN.GN ---
Behaviors/Verbalizations/Mental Status: [Client maintained fair eye contact -often looking away or down, casually dressed, motor activity restless - client fidgeting and moving about the room -playing on phone and answered phone on multiple occasions during group discussion, exaggerated speech and normal tone, mood dysthymic, irritable, affect congruent, thoughts linear and logical, no evidence of delusions or hallucinations.] Client Response/Progress/Benefit: [Client responded well to session and was able to participate in both the activity and discussion portions of the group. Client did well to discuss with the group the benefits of a positive support system in managing mental health symptoms and made connections to his own life via information discussed. Client benefited from the support of the group environment and identifying how having experienced toxic supports in the past has contributed to his appreciation of having positive supportive people in his life. Client volunteered to take on an active role in the activity portion; however, on various occasions Client was distracted by texts or answering his phone. This also seemed to negatively impact fellow group participants. CLient displayed some progress in his ability to remain mostly on topic during discussion and allow others input to be heard. Recommended continued IOP tx to further improve upon identification and utilization of healthy supports.] Narrative Note: []
--- NOTE | 2018-02-27 12:14 | PN_ITS ---
Progress Note Patient is seen in follow-up for major depressive disorder recurrent moderate, anxiety unspecified, and personality disorder with dependent traits. History is been obtained per interview with patient, discussion with staff, review of chart. Case discussed with treatment team. Chief complaint I do not think my body can handle the medications. Interim history Patient reports multiple physical complaints over the past 2 weeks including feeling both over activated and somnolent as well as multiple other complaints which he attributed to the medication. He therefore discontinued all psychiatric medication 2 weeks ago. His mood is somewhat improved since starting IOP. He acknowledges increased activity. He is forward thinking. He treated his car in for a new track. He has hopes of getting a camper, working through the winter and then traveling for a year. He has fleeting passive thoughts of suicide. No suicide plan or intent. Feels able to maintain safety. No homicidal ideation. No symptoms consistent with psychosis. He continues to have ruminative anxiety which she describes as feeling unsettled but notes that is decreased in intensity. He goes to bed between 10 and 10:30 PM. He falls asleep around 11 PM and sleeps until 2 AM. he states he then wakes up and body rests until he gets out of bed at 7 AM. He reports BiPAP compliance. He is working with sleep specialist Dr. Roberto Carlos Jesus. Reports taking melatonin and tryptophan. Appetite is normal. He has an appointment at [facility] in March. Mental status exam Alert and oriented. No acute distress. Ambulatory with normal gait and station. Casually dressed and groomed. Appropriate hygiene. Cooperative with interview. Good eye contact. No psychomotor agitation or retardation. Mood depressed but improved. Affect congruent. Speech is clear and of regular rate and volume. Language fluent. Thought process organized. Associations logical. Thought content significant for ruminative anxiety and themes of depression. Passive suicidal ideation. No suicide plan or intent. Feels able to maintain safety. No homicidal ideation related to or detected. No evidence of psychosis related to her detected. Immediate recent and remote memory grossly intact. Attention and concentration are fair. Estimated intelligence fund of knowledge average. Judgment and insight are limited to fair. Labs and testing Hemoglobin between 17 and 18 during multiple lab draws between July and September. Patient reports recent thyroid studies normal range. Further lab work will be requested from primary care physician. Other lab work will be obtained as needed. Diagnosis Major depressive disorder recurrent moderate F 33.1 Anxiety unspecified Personality disorder with dependent traits Obstructive sleep apnea Polycythemia History of ocular migraines Plan Continue IOP as the structured setting is necessary to prevent decompensation and maintain gains. Risks benefits alternatives of medications discussed with patient. Patient acknowledges understanding. Patient declines further medications at this time. Consider cognitive behavioral therapy for insomnia. Patient continued to display help rejecting behaviors and dependent traits throughout the interview. Follow-up with Dr. Roberto Carlos Jesus. Keep appointment at [facility] clinic. Continue follow-up with Rita Romo for when IOP complete. Patient acknowledges understanding and is in agreement with plan. Feels able to maintain safety. Agrees to seek help or emergency care feeling unsafe to self or others.
--- NOTE | 2018-03-02 09:02 | BH.SGPN.GN ---
Behaviors/Verbalizations/Mental Status: []Client alert and oriented, neatly dressed and groomed. Eye contact fair. Motor activity appropriate. Speech monotone and drawn out at times. Affect incongruent-reporting depressed mood and extreme loneliness, but laughing while sharing, mood depressed. Thoughts linear, logical, no signs of hallucinations or delusions. Reviewed clients symptom tracker, client reports low thoughts of suicide, but denies plan, or intent as of 03/02/18. Client Response/Progress/Benefit: []Client responded well to session, providing supportive statements to peers. Client reports feeling extreme loneliness and like I'm fighting off demons today. Client shared the weekend started out well for him as he had increased energy and was able to get out of the house and be social, go hiking, and go to amish. However, client reports belief that alcohol he consumed increased his depressive symptoms. Client stated he got five hours of sleep one night over the weekend, but since then his sleep has been scarce. Client reported his increased depressive symptoms may also be from seeing his at a restaurant on Friday sharing, I'm still in love with her and she left me for her boss. Client stated he plans to continually repeat positives to combat depressive symptoms today. Client seemed to benefit from challenging distorted thoughts in the moment and from receiving supportive statements from peers. Client able to verbalize thought challenging and other healthy coping skills, but reports inconsistent application which may hinder progress.
--- NOTE | 2018-03-02 10:20 | BH.SGPN.GN ---
Behaviors/Verbalizations/Mental Status: [] Pt eye contact good, casually dressed, motor activity appropriate, speech normal rate and tone, mood dysthymic, congruent affect, thoughts linear and intact, no evidence of delusions or hallucinations. Client Response/Progress/Benefit: []Pt contributed to discussion, listened attentively to others and worked cooperatively with peers. Pt reported he relates to the quote because he recognizes his thought patterns can create more problems or make current problems much larger than reality. Pt shared he agrees it's important to challenge unhealthy thought patterns that are keeping him stuck, however reported he doesn't see it as possible when in such a dark place. After being challenged on distorted thought, pt recognized if he tells himself he can't do it then he won't. Pt provided feedback and support to peers. Pt seemed to benefit from learning about problem solving method and getting opportunity to problem solve in the moment. Narrative Note: []
--- NOTE | 2018-03-02 11:20 | BH.SGPN.GN ---
Behaviors/Verbalizations/Mental Status: [] Pt eye contact good, casually dressed, motor activity appropriate, speech normal rate and tone, mood dysthymic, constricted affect, thoughts linear and intact, no evidence of delusions or hallucinations. Client Response/Progress/Benefit: []Pt active participant AEB pt sharing thoughts and feelings and providing feedback to peers. Pt did snicker at another person's comments about specific coping skills that can be helpful. At times pt will make comments or facial expressions towards peers responses that can be interpreted as insensitive and triggering. Towards end of group pt was more supportive to peers and giving positive feedback to others. Pt identified his problem is not having a job. Pt shared his steps to solve this problem are: search for jobs, apply to jobs of interest, interview, and save money. Pt shared he knows the steps he needs to take in order to get to his solution of having a job, but depression, anxiety, and physical pain are barriers that keep him from completing the known steps. Pt reported he is going to push through the barriers because has hope a job will help him feel emotionally better by having structure, purpose, and making money. Pt seemed to benefit from creating plan of action to help get closer to solution for his identified problem. pt to continue IOP level of care to decrease negative thoughts, maintain gains, and prevent decompensation. Narrative Note: []
--- NOTE | 2018-03-04 10:03 | BH.SGPN.GN ---
Behaviors/Verbalizations/Mental Status: []Client alert and oriented, neatly dressed and groomed. Eye contact fair. Motor activity appropriate. Speech within normal limits. Affect flat, mood dysthymic. Thoughts linear, logical, no signs of hallucinations or delusions. Client Response/Progress/Benefit: []Client responded well to session, contributing at times, but then also distracted. Client discussed things in life that keep people stuck from obtaining mental wellness. Client listed things he would like to get rid of in his life in order to obtain improved mental wellness. Client identified toxic people, anxiety, fear, health issues, and insomnia. Client shared if he removed these stressors he would feel happy and motivated. Client participated in the activity that promoted emotional release of things holding client back. Client appeared to benefit from identifying what he would like to remove from his life in order to obtain improved mental wellness.
--- NOTE | 2018-03-04 11:05 | BH.SGPN.GN ---
Behaviors/Verbalizations/Mental Status: []Client alert and oriented, neatly dressed and groomed. Eye contact poor. Motor activity appropriate. Speech within normal limits. Affect flat, mood dysthymic. Thoughts linear, logical, no signs of hallucinations or delusions. Client Response/Progress/Benefit: []Client did not respond well to session, sharing he was too distracted to create a full 30-day plan. Client shared he had a hard time with the 30-day plan because client shared his stressors are out of his control. Client was encouraged to select one stressor in his control that he could reduce. Client shared he could work on reducing anxiety. Progress variable as client continues to struggle with focusing on stressors in his control and implementing healthy coping skills.
--- NOTE | 2018-03-04 14:13 | BH.MDN_ITS ---
Multi-Disciplinary Note - Note 60-min Individual Time Started:: 09:10 Date: 03/04/18 Purpose of session/treatment goals addressed:: Purpose of session was to assess current symptoms and stressors. Other topics: assessed lethality, challenged distorted thoughts, and plan to move forward. Eye Contact:: Poor Motor Activity:: Restless Appearance:: Casual Speech:: Tangential, Rambling Mood:: Anxious, Depressed, Other - tearful Affect:: Constricted Thoughts:: Circular, No evidence of hallucinations/delusions noted Staff Interventions:: Therapist used open ended questions to elicit pt's current symptoms and stressors. Therapist challenged pt's distorted thought patterns and assisted pt with recognizing how much his thought patterns impact his functioning. Therapist assessed for lethality, contracted for safety. Therapist assisted pt with identifying positives and progress. Therapist provided support by using active listening and providing feedback. Client Response:: Pt appeared to be in discomfort and verbalized I'm not doing very good right now. Pt shared this morning he woke up with the worst depression and feeling physically and emotionally exhausted. Pt reported he was doing better for a little bit, but all of a sudden feeling worse. Pt shared reported he's not sure he can do this roller coaster of doing good then feeling terrible for much longer. Pt reported I'm not at the point where I'm going to shoot myself. Pt shared he just needs some relief and is starting to lose hope. Pt reported he does have a doctor appointment next month with a hormone doctor and is hoping that will help with some of the physical issues he is having. Pt often was focused on what might happen and how things won't change. Pt did seem to gain some insight after being challenged that his thinking patterns are having impact on his progress and functioning. However, once pt agrees his thoughts are unhelpful he attributes his problems to a fear that he can't do anything about because he views it as chemical problem and needs a certain medication to fix it. With assistance from therapist pt able to identify he was making progress with getting out of house more often, applying for jobs, getting a truck, looking for apartments and moving towards longterm goal of traveling the country. Pt shared his decreased sleep, increased depression, increased anxiety, physical pain, and decreased concentration are currently impacting ability to move forward. Pt recognizes if he doesn't push through the barriers he won't get anything done. 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 Pt shared although he's not sure he can function at a job, he is hoping having a job will help because it will get him out of the house, provide structure/routine, gives purpose, and make money. Pt contracted for safety and reported he will try and do something that gets him out of the house. Risks/Concerns:: Pt continues to have suicidal ideation, denies plan or intention as of 03.04.18. Pt will continually be monitored give pt's chronic SI. Pt understands and agreeable to go to nearest emergency room or call 911 if unable to maintain safety. Pt future focused. Progress Toward Goals/Plan:: Pt has shown progress with decreased isolation, increased daily activity, applying for jobs, and being more productive throughout the day. As of today pt reported increase in depressive and anxious symptoms. Pt's progress is variable based on the week or day. Pt has made positive movement towards his goals, but currently decompensating. Pt's negative and distorted thought patterns continue to be hindrance to treatment progress. Pt's external locus of control could also be barrier to treatment progress, struggles with identifying what is in his control to help improve situation. Pt to continue IOP level of care to stabilize moods, challenge distorted thoughts, and prevent further decompensation. Time Stopped:: 10:10
--- NOTE | 2018-03-04 15:01 | BH.TPR ---
Treatment Plan Review Date of Admission:: 02/03/18 Date of Treatment Plan Review:: 03/04/18
--- NOTE | 2018-03-06 09:05 | BH.SGPN.GN ---
Behaviors/Verbalizations/Mental Status: [] Pt eye contact fair, casually dressed, motor activity restless, speech normal rate and tone, mood dysthymic, congruent affect, thoughts linear and intact, no evidence of delusions or hallucinations. Reviewed client?s symptom tracker, no signs of suicidal ideation, plan, or intent as of today. Client Response/Progress/Benefit: [] Client reported he did sleep a little better the last couple of days which has definitely helped him feel better because he can think more clearly. Client reported he was able to get out of the house by going hiking and watching the football game with some friends at a restaurant. Client reported despite getting better sleep he is recognizing that his depression is still worsening. Client recognizes his living situation is contributing to his depressed mood, however the thought of moving out of his house results in heightened anxiety and fear. Client reported he has a job interview on Friday and is hopeful that having a job will give him structure and routine. Client made supportive comments to others and shared various strategies and ideas that could be helpful. Client demonstrating progress with getting out of the house despite not feeling well and increased awareness of what might be contributing to his depressed mood. Client continuing to struggle with putting into action what he needs to do to help his living situation due to fear and anxiety. Patient to continue IOP level of care to stabilize moods, improve generalization of skills, and prevent decompensation. Narrative Note: []
--- NOTE | 2018-03-06 10:12 | BH.SGPN.GN ---
Behaviors/Verbalizations/Mental Status: []Client alert and oriented, neatly dressed and groomed. Eye contact fair. Motor activity appropriate. Speech monotone, slowed. Affect flat, mood dysthymic. Thoughts circular, logical, no signs of hallucinations or delusions. Client Response/Progress/Benefit: []Client responded well to session, providing input. Client discussed coping skills with the group and shared one learns coping skills from home, siblings, and therapy. Client shared people revert to unhealthy coping skills because ?it?s easier, but is the result worth it?? Client shared he knows healthy coping skills are better in theory, but they are harder to use in life. Client participated in the group activity and struggled at times to adapt to the feedback from peers. ?Client appeared to benefit from learning about how one develops coping skills and from receiving feedback from peers. Client to continue IOP as he continues to struggle with implementing internal coping skills which could hinder progress.
--- NOTE | 2018-03-06 11:12 | BH.SGPN.GN ---
Behaviors/Verbalizations/Mental Status: []Client alert and oriented, neatly dressed and groomed. Eye contact good. Motor activity appropriate. Speech tangential and slowed. Affect flat, mood depressed, pessimistic. Thoughts preoccupied, no signs of hallucinations or delusions. Client Response/Progress/Benefit: []Client did not respond well to session, client providing input, but his statements were negative and client often disqualified the effectiveness of coping skills. Client listened as the group identified strategies for the different categories of coping skills, but client shared thinking of coping skills was triggering for him as ?nothing works for me, I?ve tried them all.? Client was encouraged to use in the moment coping skills and take a break if needed, but client declined. Client created a coping skills menu which included setting small goals, constant thought challenging, and spending time at a friend?s house. Client appeared to benefit from creating a coping skills menu. Client to continue IOP as client continues to struggle with using internal coping skills and contributing his mental health to external stressors.
--- NOTE | 2018-03-11 10:18 | BH.SGPN.GN ---
Behaviors/Verbalizations/Mental Status: []Client alert and oriented, neatly dressed and groomed. Eye contact fair. Motor activity appropriate. Speech tangential- engaging in off topic side conversations. Affect flat, mood dysthymic. Thoughts linear, logical, no signs of hallucinations or delusions. Client Response/Progress/Benefit: []Client responded somewhat well to session, off topic and engaging in side conversations, but providing insight to discussion. Client helped the group discuss the different types of communication styles and how they impact mental health. Client reports he uses assertive communication, but client continues to struggle with his relationships as client stated his is ?manipulative and passive aggressive.? Client stated it is hard for client to manage his mental health because he cannot effectively communicate with his . The group reminded client that he cannot control others and client may need to set boundaries if his is not receptive to changing her communication with client. Client appeared to benefit from receiving feedback from peers. Client?s progress may be hindered as he continues to focus on managing external stressors which keeps client feeling stuck.
--- NOTE | 2018-03-11 11:58 | BH.MDN ---
Multi-Disciplinary Note - Note 45-min Individual Time Started:: 11:15 Date: 03/11/18 Purpose of session/treatment goals addressed:: Used the session to assess current symptoms and progress in IOP. Also used the sessions to discuss aftercare plans and discharge. Eye Contact:: Fair Motor Activity:: Appropriate Appearance:: Casual Speech:: Appropriate Mood:: Depressed Affect:: Congruent Thoughts:: Linear, Logical, No evidence of hallucinations/delusions noted Staff Interventions:: Utilzed [place] techiques to encourage change. Provided pt with additional support group resources in the area. Allowed him to vent frustrations. Priased for consistent attendance and effort in the program. Client Response:: Pt reports that he continues to struggle with depression however states I'm in a much better spot than I was when I started [facility]-oriented towards plans to get a job and work all winter to save money to travel across the country in the spring/summer. He completed a job interview yesterday and is unsure how it went. He described the benefits of the program and staff and reported I know that my negative mood can be frustrating. Admits that he did not progress as much as he or the staff would have liked however he beleives that the lack of progress and continued depression is related to medical, chemical, and hormonal issues. He has an appt with a hormone specialist on 03/21/18 and is hopeful. He beleives that he has learned all the skills he can from this program however will miss the support, structure, and ability to vent his negative emotions in the program. Was open to [facility] program and Depression/Bipolar Support group through [facility]. Was agreeable to last day being either Friday or early next week. Risks/Concerns:: Denies active suicidal ideations, plan, or intent. Has displayed chronic suicidal thoughts for the past several months however these thoughts have decreased in duration, severity, and frequency since starting IOP. Future-oriented. Does not present as imminent danger to self due to no active ideations, plan, or intent. Progress Toward Goals/Plan:: Pt has made moderate progress during IOP however continues to struggle with depression and anxiety. Agreeable to discharge from IOP at next session as he has reached maximum benefit from this level of care. Time Stopped:: 12:00
--- NOTE | 2018-03-11 12:19 | BH.MDN_ITS ---
Multi-Disciplinary Note - Note 45-min Individual Time Started:: 11:15 Date: 03/11/18 Purpose of session/treatment goals addressed:: Used the session to assess current symptoms and progress in IOP. Also used the sessions to discuss aftercare plans and discharge. Eye Contact:: Fair Motor Activity:: Appropriate Appearance:: Casual Speech:: Appropriate Mood:: Depressed Affect:: Congruent Thoughts:: Linear, Logical, No evidence of hallucinations/delusions noted Staff Interventions:: Utilzed [place] techiques to encourage change. Provided pt with additional support group resources in the area. Allowed him to vent frustrations. Priased for consistent attendance and effort in the program. Client Response:: Pt reports that he continues to struggle with depression however states I'm in a much better spot than I was when I started [facility]- oriented towards plans to get a job and work all winter to save money to travel across the country in the spring/summer. He completed a job interview yesterday and is unsure how it went. He described the benefits of the program and staff and reported I know that my negative mood can be frustrating. Admits that he did not progress as much as he or the staff would have liked however he beleives that the lack of progress and continued depression is related to medical, chemical, and hormonal issues. He has an appt with a hormone specialist on 03/21/18 and is hopeful. He beleives that he has learned all the skills he can from this program however will miss the support, structure, and ability to vent his negative emotions in the program. Was open to [facility] program and Depression/Bipolar Support group through [facility]. Was agreeable to last day being either Friday or early next week. Risks/Concerns:: Denies active suicidal ideations, plan, or intent. Has displ ayed chronic suicidal thoughts for the past several months however these thoughts have decreased in duration, severity, and frequency since starting IOP. Future-oriented. Does not present as imminent danger to self due to no active ideations, plan, or intent. Progress Toward Goals/Plan:: Pt has made moderate progress during IOP however continues to struggle with depression and anxiety. Agreeable to discharge from IOP at next session as he has reached maximum benefit from this level of care. Time Stopped:: 12:00
--- NOTE | 2018-03-13 15:05 | BH.COMM ---
Communication Note - Communication with Client Communication Note: Pt called in today to inform IOP that his last day in the program would be next week and not today.
== END 2018-03-15 23:59 ==
LOC: BHIOP 09:00
PROVIDERS: Visit Provider Psychiatry & Neurology Psychiatry
DX: F33.1 Major depressive disorder, recurrent, moderate (principal); F41.1 Generalized anxiety disorder; F60.89 Other specific personality disorders; G47.33 Obstructive sleep apnea (adult) (pediatric); D75.1 Secondary polycythemia
CPT/HCPCS: H0035; 90834; 90837; 90853

== ENCOUNTER 2018-03-20 09:00 | Outpatient (RCR) | payer MEDICARE, SELFPAY ==
--- NOTE | 2018-03-20 09:06 | BH.SGPN.GN ---
Behaviors/Verbalizations/Mental Status: [Client maintained consistent eye contact ? at times appearing intense in nature. Willing to engage in the discussion ? however content was mostly negative or or appearing to disqualify his own areas of progress. Client was neatly and casually dressed, appropriate grooming, speech normal rate and tone ? at times tone appearing frustrated or dismissive, mood grim, anxious, affect congruent with mood, thoughts logical ? preoccupied, circular in content, no evidence of delusions or hallucinations.] Client Response/Progress/Benefit: [Client receptive of session, openly shared with the group though provided minimal feedback to others. CLient indicated that this is his last day in the program which is a bittersweet feeling for him. He indicated I'm glad everyone is so positive and optimistic...so I'll try not to be too negative. Client discussed that he has had some positives in the past week such as securing a job, an upcoming neurologist appointment on this date, and that he has been a little more social lately. Although client has made progress in his ability to identify the positives in his life and the work he is putting into continuing to improve his mental health - client continues to struggle significantly with disqualifying the positives in his life. He went on to list various areas in which he continue to struggle such as ongoing physical pain, as well as what client describes as a sinking depression leaving me with a huge hole. He benefited from being challenged by fellow participants regarding client use of absolute statements. Client is discharging [facility] level of care as he has progressed in ability to maintain safety, decreased suicidal ideation, and is better managing sx of depression. Recommended continued focus on distorted thinking patterns on the outpatient basis.] Narrative Note: []
--- NOTE | 2018-03-20 10:20 | BH.SGPN.GN ---
Behaviors/Verbalizations/Mental Status: [] Pt eye contact fair, neatly dressed and groomed, motor activity appropriate, speech normal rate and tone, mood dysthymic, constricted affect, thoughts linear and intact, no evidence of delusions or hallucinations. Client Response/Progress/Benefit: []Pt appeared distracted AEB looking at phone and not appearing to be listening to others at times. Pt did share his thoughts and ideas at times, less engaged compared to previous group sessions. Pt reported he connects with the cognitive distortion overgeneralization. Pt shared he catches himself overgeneralizing that since his current relationship is ending he won't be able to have a successful relationship. Pt also could connect with all or nothing thinking, recognizing he is often needing the extreme or things to be perfect. Pt seemed to benefit from review of cognitive distortions and increased awareness of how his thoughts impact his forward progress. Narrative Note: []
--- NOTE | 2018-03-20 11:30 | BH.SGPN.GN ---
Behaviors/Verbalizations/Mental Status: []Pt eye contact fair, neatly dressed and groomed, motor activity appropriate, speech normal rate and tone, mood dysthymic, constricted affect, thoughts linear and intact, no evidence of delusions or hallucinations. Client Response/Progress/Benefit: [] Client continued to appear distracted throughout group session as evidenced by him looking at phone and not providing personal examples during small group discussion of distorted thought patterns. With assistance from peers client could relate to all or nothing thinking as a distortion that he often falls into. Client seemed to benefit from group discussion reiterating the impact to start that parents can have on one's mental health. Client progress could be hindered by client's disengagement and group session. Client to continue IOP level of care to stabilize mood and prevent decompensation. Narrative Note: []
--- NOTE | 2018-03-20 12:36 | BH.AFTERPLAN ---
Aftercare Plan - Demographics Treatment End Date:: 03/20/18 Psychiatrist:: Eir Monroy Psychiatrist Office #:: [phone] [facility]/IOP Therapist:: Tania Nance Therapist Phone #:: [phone] - Medications Home Medications: Home Medications thyroid (pork) 300 mg tablet 300 mg PO QDAY tab 11/28/17 Escitalopram Oxalate [Lexapro] 1.25 mg PO DAILY 02/06/18 Gabapentin [Neurontin] 300 mg PO QHS 02/06/18 Quetiapine Fumarate [Seroquel] 6.25 mg PO QHS 02/09/18 - Plan Details Progress/Aftercare Plan Details:: You have shown progress with decrease isolative behaviors. You were able to get out of the house and consistently attend IOP. You are more active on a weekly basis by going hiking, mountain biking, and other physical activities. You have been able to obtain a job that will continue to get you out of the house and provide purpose to get moving each day. You have shown increase generalization and use of healthy coping skills. The plan is for you to follow up with outpatient counseling with Evette Ying, continue psychiatry with Hetal Neely and encouraged to attend support groups at [facility] or look into groups offered at counseling center. Strategies for Success:: 1. Having a structured schedule will help you get up and start your day. 2. Setting small daily SMART goals which will help motivate you to keep moving forward. 3. Getting out of the house is davidson! 4. Being outside is something you enjoy and makes you feel better. I.E. hiking, moutain biking, etc. 5. Be mindful of cognitive distortions and reframe to more positive, rational responses. 6. Self-care is davidson - remember to engage in activities that you enjoy. 7. Socialize - can't meet others if you don't put yourself out there. 8. Identify at least 2 positives from your day, even on those tough days. 9. Review your IOP binder to refresh self on your healthy skills. - Appointments Appointments/Referrals to Other Services:: 1. Evette Ying - end of March. 2. Hetal Neely - pt to set appointment. 3. Encouraged to attend [facility] [place] support groups or look into groups offerd at [facility].
--- NOTE | 2018-03-20 13:21 | BH.IGGP_ITS ---
Aftercare Plan - Demographics Treatment End Date:: 03/20/18 Psychiatrist:: Eri Monroy Psychiatrist Office #:: [phone] [facility]/IOP Therapist:: Tania Nance Therapist Phone #:: [phone] - Medications Home Medications: Home Medications thyroid (pork) 300 mg tablet 300 mg PO QDAY tab 11/28/17 Escitalopram Oxalate [Lexapro] 1.25 mg PO DAILY 02/06/18 Gabapentin [Neurontin] 300 mg PO QHS 02/06/18 Quetiapine Fumarate [Seroquel] 6.25 mg PO QHS 02/09/18 - Plan Details Progress/Aftercare Plan Details:: You have shown progress with decrease isolative behaviors. You were able to get out of the house and consistently attend IOP. You are more active on a weekly basis by going hiking, mountain biking, and other physical activities. You have been able to obtain a job that will continue to get you out of the house and provide purpose to get moving each day. You have shown increase generalization and use of healthy coping skills. The plan is for you to follow up with outpatient counseling with Evette Ying, continue psychiatry with Hetal Neely and encouraged to attend support groups at [facility] or look into groups offered at counseling center. Strategies for Success:: 1. Having a structured schedule will help you get up and start your day. 2. Setting small daily SMART goals which will help motivate you to keep moving forward. 3. Getting out of the house is davidson! 4. Being outside is something you enjoy and makes you feel better. I.E. hiking, moutain biking, etc. 5. Be mindful of cognitive distortions and reframe to more positive, rational responses. 6. Self-care is davidson - remember to engage in activities that you enjoy. 7. Socialize - can't meet others if you don't put yourself out there. 8. Identify at least 2 positives from your day, even on those tough days. 9. Review your IOP binder to refresh self on your healthy skills. - Appointments Appointments/Referrals to Other Services:: 1. Evette Ying - end of March. 2. Hetal Neely - pt to set appointment. 3. Encouraged to attend [facility] [place] support groups or look into groups offerd at [facility].
--- NOTE | 2018-03-20 14:52 | BH.MDN ---
Multi-Disciplinary Note - Note 45-min Individual Time Started:: 12:15 Date: 03/20/18 Eye Contact:: Fair Motor Activity:: Appropriate Appearance:: Neat Speech:: Appropriate Mood:: Dysthymic Affect:: Constricted Thoughts:: Linear, Circular, No evidence of hallucinations/delusions noted Time Stopped:: 13:00
--- NOTE | 2018-03-20 15:25 | BH.DS ---
Discharge Summary - Demographics Date of Admission:: 02/03/18 Discharge Date: 03/20/18 Presenting Problems at Admission:: Patient 42-year-old male who presented to the behavioral health [facility] by self-referral for evaluation and treatment of depression and anxiety over the past 8 months. Reported symptoms have been exacerbated by thyroid dysregulation and marital dynamics. He endorsed a depressed mood with anhedonia, decreased energy and difficulty concentrating. He had some passive thoughts of suicide for the past few months stating I want the pain to go away. Discharge Diagnoses:: Major depressive disorder recurrent moderate F 33.1. Anxiety unspecified. Personality disorder with dependent traits Reason for Discharge:: Pt has made moderate progress throughout IOP level of care. Pt progress is stagnant so pt is following up with his hormone doctor to ensure there is not an underlying medical cause for continued mental health symptoms. - Treatment Progress During Treatment & Response: Pt has shown progress with decrease in isolative behaviors AEB pt getting out of the house more frequently and consistently attending [facility]. Pt has been more active the past couple weeks with going [employer], [employer] and at times going to the gym to lift. Pt has successfully gained employment which will help him get out of the house throughout the week and give him purpose. Pt has shown increased generalization with using healthy coping skills more consistently. Pt was an active participant throughout group sessions AEB contributing thoughts and ideas to discussion, took leadership role during challenge activites, and gave feedback to peers. At times pt struggled with making unhelpful thoughts to peers which invalidated others feelings and experience. Issues Still to be Addressed:: Pt continuing to struggle with distorted and negative thought patterns with limited awareness of how those thought patterns impact his mood. Pt could benefit from continued focus on identifying and challenging negative thought patterns. pt also could benefit from creating a daily schedule and routine that helps him have purpose to get out of bed each day. Discharge Recommendations/Instructions:: Pt has appointment scheduled for first week in with his outpatient counselor Evette Ying at [facility]. Pt reports he will call Hetal Neely to set an appointment for psychiatry follow up. Pt strongly encouraged to attend support groups at [facility]. Also, encouraged to talk with counseling center about outpatient groups offered that he could attend for addtional support. Discharge Handout: Complete Discharge Handout with client on aftercare options and continuity of care.
--- NOTE | 2018-03-31 07:26 | BH.DS_ITS ---
Discharge Summary - Demographics Date of Admission:: 02/03/18 Discharge Date: 03/20/18 Presenting Problems at Admission:: Patient 42-year-old male who presented to the behavioral health [facility] by self-referral for evaluation and treatment of depression and anxiety over the past 8 months. Reported symptoms have been exacerbated by thyroid dysregulation and marital dynamics. He endorsed a depressed mood with anhedonia, decreased energy and difficulty concentrating. He had some passive thoughts of suicide for the past few months stating I want the pain to go away. Discharge Diagnoses:: Major depressive disorder recurrent moderate F 33.1. Anxiety unspecified. Personality disorder with dependent traits Reason for Discharge:: Pt has made moderate progress throughout IOP level of care. Pt progress is stagnant so pt is following up with his hormone doctor to ensure there is not an underlying medical cause for continued mental health symptoms. - Treatment Progress During Treatment & Response: Pt has shown progress with decrease in isolative behaviors AEB pt getting out of the house more frequently and consistently attending [facility]. Pt has been more active the past couple weeks with going [employer], [employer], and at times going to the gym to lift. Pt has successfully gained employment which will help him get out of the house throughout the week and give him purpose. Pt has shown increased generalization with using healthy coping skills more consistently. Pt was an active participant throughout group sessions AEB contributing thoughts and ideas to discussion, took leadership role during challenge activites, and gave feedback to peers. At times pt struggled with making unhelpful thoughts to peers which invalidated others feelings and experience. Issues Still to be Addressed:: Pt continuing to struggle with distorted and negative thought patterns with limited awareness of how those thought patterns impact his mood. Pt could benefit from continued focus on identifying and challenging negative thought patterns. pt also could benefit from creating a daily schedule and routine that helps him have purpose to get out of bed each day. Discharge Recommendations/Instructions:: Pt has appointment scheduled for first week in with his outpatient counselor Evette Ying at [facility]. Pt reports he will call Hetal Neely to set an appointment for psychiatry follow up. Pt strongly encouraged to attend support groups at [facility]. Also, encouraged to talk with counseling center about outpatient groups offered that he could attend for addtional support. Discharge Handout: Complete Discharge Handout with client on aftercare options and continuity of care.
== END 2018-03-20 14:00 | disposition home or self-care (01) ==
LOC: BHIOP 09:00
PROVIDERS: Visit Provider Psychiatry & Neurology Psychiatry
DX: F33.1 Major depressive disorder, recurrent, moderate (principal); F41.1 Generalized anxiety disorder; F60.89 Other specific personality disorders
CPT/HCPCS: H0035; 90834; 90853

== ENCOUNTER → 2018-07-16 14:00 | Outpatient (CLI) | payer MEDICARE, SELFPAY ==
--- NOTE | 2018-07-16 14:02 | RAD_ITS ---
STUDY: X-RAY - RIGHT SHOULDER REASON FOR EXAM: Male, 42 years old. Chronic pain TECHNIQUE: 3 view(s) of the shoulder. COMPARISON: July 19, 2013 FINDINGS: Normal glenohumeral articulation. Normal acromioclavicular joint. Normal acromion. Normal humeral head and visualized proximal humerus. The soft tissue structures are unremarkable. Normal visualized pulmonary apex. RAD/Shoulder min 2 Views IMPRESSION: Normal x-ray examination of the shoulder. Electronically Signed: Vernon Gould MD at 7:34 EST , Service support ,
== END ==
PROVIDERS: Visit Provider Physician Assistant
DX: M25.511 Pain in right shoulder (principal)
CPT/HCPCS: 73030